=== PATIENT | female | born 1980 | race African-American/Black ===

== ENCOUNTER 2016-10-12 20:06 | Emergency (ER) | payer SELFPAY ==
[2016-10-13] MEDS ORDERED: OXYCODONE-ACETAMINOPHEN 5-325 MG TABLET PO ONE (00:13)
[2016-10-13] MEDS ORDERED: PROMETHAZINE HCL 25 MG TABLET PO ONE (00:13)
[2016-10-13] MEDS ORDERED: DOXYCYCLINE HYCLATE 100 MG TABLET PO ONE (00:13)
--- NOTE | 2016-10-13 00:14 | ER Document Report ---
ED Skin Rash/Insect Bite/Abscs - General Chief Complaint: Abscess Stated Complaint: ABSCESS ON RIGHT HIP Time seen by provider: 00:10 Notes: Patient is a 35-year-old female that comes emergency department for chief complaint of an abscess this developing on her lower right abdomen at the foot, she started noticing this about 2 days ago. She states she has also developed sinus congestion, postnasal drip, mild sore throat, and chills. He denies cough , shortness of breath. Patient denies any daily medications. She states she has had abscesses including over her abdomen in the past. Last menstrual period within the past couple of weeks. TRAVEL OUTSIDE OF THE [place] IN LAST 30 DAYS: No - Related Data Allergies/Adverse Reactions: Penicillins Allergy (Severe, Verified 10/12/16 21:01) Past Medical History - General Information source: Patient - Social History Smoking Status: Never Smoker Drug Abuse: None Lives with: Family Family History: Reviewed & Not Pertinent Renal/ Medical History: Denies: Hx Peritoneal Dialysis Skin Medical History: Reports Hx Cellulitis, Reports Hx MRSA Infectious Medical History: Reports: Hx MRSA Past Surgical History: Reports: Hx Section, Hx Gynecologic Surgery - 3 abortions - Immunizations Immunizations up to date: Yes Hx Diphtheria, Pertussis, Tetanus Vaccination: Yes Hx Pneumococcal Vaccination: 03/18/10 Review of Systems - Review of Systems Constitutional: No symptoms reported EENT: See HPI Cardiovascular: No symptoms reported Respiratory: No symptoms reported Gastrointestinal: No symptoms reported Genitourinary: No symptoms reported Female Genitourinary: No symptoms reported Musculoskeletal: No symptoms reported Skin: No symptoms reported Hematologic/Lymphatic: No symptoms reported Neurological/Psychological: No symptoms reported Physical Exam - Vital signs Vitals: Temp Pulse Resp BP Pulse Ox 99.0 F 80 17 128/73 H 99 10/12/16 21:02 10/12/16 21:02 10/12/16 21:02 10/12/16 21:02 10/12/16 21:02 Interpretation: Normal - General General appearance: Appears well, Alert In distress: None - HEENT Head: Normocephalic, Atraumatic Eyes: Normal Pupils: PERRL - Respiratory Respiratory status: No respiratory distress Chest status: Nontender Breath sounds: Normal Chest palpation: Normal - Cardiovascular Rhythm: Regular Heart sounds: Normal auscultation Murmur: No - Abdominal Inspection: Other - In the fold underneath the right lower abdomen there is an indurated, erythematous, tender area with a fluctuant head. Mild amount of surrounding cellulitis. Distension: No distension Bowel sounds: Normal Tenderness: Nontender Organomegaly: No organomegaly - Back Back: Normal, Nontender - Extremities General upper extremity: Normal inspection, Nontender, Normal color, Normal ROM , Normal temperature General lower extremity: Normal inspection, Nontender, Normal color, Normal ROM , Normal temperature, Normal weight bearing. No: Hima's sign - Neurological Neuro grossly intact: Yes Cognition: Normal Orientation: AAOx4 Sandeep Coma Scale Eye Opening: Spontaneous Sandeep Coma Scale Verbal: Oriented [place] Coma Scale Motor: Obeys Commands [place] Coma Scale Total: 15 Speech: Normal Motor strength normal: LUE, RUE, LLE, RLE Sensory: Normal - Psychological Associated symptoms: Normal affect, Normal mood - Skin Skin Temperature: Warm Skin Moisture: Dry Skin Color: Normal Course - Re-evaluation Re-evalutation: Minimal cellulitis around the abscess, sinus congestion symptoms. Given doxycycline. Abscess drained, packed, discussed treatment/care of the abscess, discussed return precautions, patient states understanding and agreement. - Vital Signs Vital signs: Temp Pulse Resp BP Pulse Ox 98.2 F 74 18 117/71 96 10/13/16 01:57 10/13/16 01:57 10/13/16 01:57 10/13/16 01:57 10/13/16 01:57 Procedures - Incision and Drainage right lower abdominal wall Type: Single Anesthetic type: 1% Lidocaine mL's of anesthetic: 5 Blade size: 11 I&D procedure: Iodoform packing placed, Sterile dressing applied, Other - Surgical cleanser Incision Method: Incision made by scalpel Notes: Area cleansed with surgical cleanser, anesthesia provided with lidocaine 1%, incision performed, about 3 mL of purulent material and a small amount of blood expressed, explored, irrigated, packed, dressed. Discharge - Discharge Clinical Impression: Abscess Condition: Stable Disposition: HOME, SELF-CARE Additional Instructions: Take the packing out in 2 days. Clean gently with soap and water, dress with clean absorbent dressing. After removal of packing clean thoroughly. Take doxycycline antibiotic as directed. Follow-up with primary care. Return to the emergency department for any concerning or worsening symptoms - spreading redness, fever, etc. Prescriptions: Doxycycline Hyclate 100 mg PO BID #14 capsule Oxycodone HCl/Acetaminophen [Percocet 5-325 mg Tablet] 1 - 2 tab PO Q4H PRN #15 tablet PRN Reason:
[2016-10-13] MEDS ORDERED: LIDOCAINE 1% INJ-PF (10 MG/ML) 30 ML SDV ONE (01:01)
[2016-10-13 01:59] VITALS: BP 117/71
== END 2016-10-13 02:05 | disposition home or self-care (01) ==
LOC: ER 20:06
PROC: 0H97XZZ Drainage of Abdomen Skin, External Approach (ICD-10-PCS; principal; 2016-10-12)
DX: L02.211 Cutaneous abscess of abdominal wall (principal); L02.415 Cutaneous abscess of right lower limb; R09.81 Nasal congestion; R09.82 Postnasal drip; J02.9 Acute pharyngitis, unspecified
CPT/HCPCS: 99283; 10060; J3490

== ENCOUNTER 2016-10-19 09:16 | Emergency (ER) | payer SELFPAY ==
--- NOTE | 2016-10-19 11:41 | ER Document Report ---
HPI - HPI Patient complains to provider of: recheck I and D of the right groin Onset: Other - 10/12/2016 Onset/Duration: Persistent Pain Level: 4 Context: 35-year-old female complaining of persistent abscess to her right groin. She feels a large lump medial to wear a follicular abscess was incised on 2016. She is still taking antibiotics. No fever or chills. Associated Symptoms: None Exacerbated by: Movement Relieved by: Denies Similar symptoms previously: Yes Recently seen / treated by doctor: Yes - ROS ROS below otherwise negative: Yes Systems Reviewed and Negative: Yes All other systems reviewed and negative - CARDIOVASCULAR Cardiovascular: DENIES: Chest pain - REPRODUCTIVE Reproductive: DENIES: : - DERM Skin Color: Normal Past Medical History - General Information source: Patient - Social History Smoking Status: Current Every Day Smoker Chew tobacco use (# tins/day): No Frequency of alcohol use: Social Drug Abuse: Marijuana Lives with: Family Family History: Reviewed & Not Pertinent Patient has suicidal ideation: No Patient has homicidal ideation: No - Medical History Medical History: Negative Renal/ Medical History: Denies: Hx Peritoneal Dialysis Skin Medical History: Reports Hx Cellulitis, Reports Hx MRSA Infectious Medical History: Reports: Hx MRSA Past Surgical History: Reports: Hx Section, Hx Gynecologic Surgery - 3 abortions - Immunizations Immunizations up to date: Yes Hx Diphtheria, Pertussis, Tetanus Vaccination: Yes Hx Pneumococcal Vaccination: 03/18/10 Vertical Provider Document - INFECTION CONTROL TRAVEL OUTSIDE OF THE [place] IN LAST 30 DAYS: No - HEENT HEENT: Normocephalic - RESPIRATORY O2 Sat by Pulse Oximetry: 97 - GI/ABDOMEN Gastrointestinal: Abdomen Soft, Abdomen Non-Tender - MUSCULOSKELETAL/EXTREMETIES Musculoskeletal/Extremeties: MAEW, FROM - NEURO Level of Consciousness: Awake, Alert, Appropriate - DERM Integumentary: Warm, Dry, Abscess - flat, crusted, minimal inflammation, mediatl to the inquinal incision area these are suspected lymph node infalmmation, no fluctuance. Course - Re-evaluation Re-evalutation: 10/19/16 11:[address] Sagastume that the area that the patient was concerned about that is medial to the abscess incision area R for lymph nodes. I explained this to the patient and gave her instructions on when to return to the emergency department if needed. - Vital Signs Vital signs: Temp Pulse Resp BP Pulse Ox 97.6 F 66 16 120/79 97 10/19/16 09:21 10/19/16 09:21 10/19/16 09:40 10/19/16 09:21 10/19/16 09:21 Discharge - Discharge Clinical Impression: healing follicular abscess, adenopathy Condition: Good Disposition: HOME, SELF-CARE Instructions: Abscess ([facility]), Lymphadenopathy ([facility]), Use of Hwkx-Bpd-Mmmuwbu Ibuprofen ([facility]) Additional Instructions: Warm compress Finish the doxycycline Return to the emergency room for increased swelling pain redness and warmth. Or any concerns Please complete the patient satisfaction survey if you get one, and return it.. If you do not receive a survey, then you can go to the [facility] website, [email or web address] and place your comments about your very good care. Thank you very much. It was a pleasure being your medical provider today.
[2016-10-19 11:45] VITALS: BP 120/80
== END 2016-10-19 11:45 | disposition home or self-care (01) ==
LOC: ER 09:16
DX: L02.214 Cutaneous abscess of groin (principal); R59.9 Enlarged lymph nodes, unspecified
CPT/HCPCS: 76857; 99283

== ENCOUNTER 2016-11-17 06:32 | Emergency (ER) | payer SELFPAY ==
--- NOTE | 2016-11-17 07:22 | ER Document Report ---
ED GI/ - General Mode of Arrival: Ambulatory Information source: Patient TRAVEL OUTSIDE OF THE [place] IN LAST 30 DAYS: No - HPI Patient complains to provider of: Abdominal pain - RUQ, Flank pain - right, Other - Urinary frequency Onset: Other - 3 days ago Location: RUQ, Right flank Vaginal bleeding (Compared to normal period): None Associated symptoms: Other - See notes above - General Chief Complaint: Urinary Frequency Stated Complaint: PAINFUL URINATION Time Seen by Provider: 11/17/16 07:14 Notes: 35-year-old female with history of UTIs presents to the ED complaining of urinary frequency, right upper quadrant abdominal pain, and right flank pain which started 3 days ago. Patient reports she has not had abdominal pain with prior UTIs and claims that it is likely due to her straining while urinating. Patient denies exacerbation of abdominal pain with eating. Patient also notes that she felt nauseous yesterday and states that she is not nauseous at this time. Patient denies fever, burning, hematuria. Patient denies cholecystectomy. (ANAMARIA CLAIRE) - Related Data Allergies/Adverse Reactions: Penicillins Allergy (Severe, Verified 10/19/16 09:19) Past Medical History - General Information source: Patient - Social History Smoking Status: Current Every Day Smoker Chew tobacco use (# tins/day): No Frequency of alcohol use: Occasional Drug Abuse: Marijuana Family History: Reviewed & Not Pertinent Patient has suicidal ideation: No Patient has homicidal ideation: No Renal/ Medical History: Reports: Other - UTIs. Denies: Hx Peritoneal Dialysis Skin Medical History: Reports Hx Cellulitis, Reports Hx MRSA Infectious Medical History: Reports: Hx MRSA Past Surgical History: Reports: Hx Section, Hx Gynecologic Surgery - 3 abortions - Immunizations Immunizations up to date: Yes Hx Diphtheria, Pertussis, Tetanus Vaccination: Yes Hx Pneumococcal Vaccination: 03/18/10 Review of Systems - Review of Systems Constitutional: No symptoms reported. denies: Fever EENT: No symptoms reported Cardiovascular: No symptoms reported Respiratory: No symptoms reported Gastrointestinal: See HPI, Abdominal pain - Right upper quadrant, Nausea Genitourinary: See HPI, Frequency, Flank pain - Right. denies: Burning, Hematuria Female Genitourinary: No symptoms reported Musculoskeletal: No symptoms reported Skin: No symptoms reported Hematologic/Lymphatic: No symptoms reported Neurological/Psychological: No symptoms reported -: Yes All other systems reviewed and negative Physical Exam - Vital signs Vitals: Temp Pulse Resp BP Pulse Ox 98.0 F 84 16 121/76 97 11/17/16 06:39 11/17/16 06:39 11/17/16 06:39 11/17/16 06:39 11/17/16 06:39 - Notes Notes: GENERAL: Alert, interacts well. No acute distress. HEAD: Normocephalic, atraumatic. EYES: Pupils equal, round, and reactive to light. Extraocular movements intact. ENT: Oral mucosa moist, tongue midline. NECK: Full range of motion. Supple. Trachea midline. BACK: Right CVA tenderness to percussion. LUNGS: Clear to auscultation bilaterally, no wheezes, rales, or rhonchi. No respiratory distress. HEART: Regular rate and rhythm. No murmurs, gallops, or rubs. ABDOMEN: Soft. Non-distended. Bowel sounds present in all 4 quadrants. Mild right upper quadrant and left lateral tenderness to palpation. Negative Chi' s sign. EXTREMITIES: Moves all 4 extremities spontaneously. No edema, radial and dorsalis pedis pulses 2/4 bilaterally. No cyanosis. NEUROLOGICAL: Alert and oriented x3. Normal speech. PSYCH: Normal affect, normal mood. SKIN: Warm, dry, normal turgor. No rashes or lesions noted. (ANAMARIA CLAIRE) Discharge - Discharge Clinical Impression: Urinary tract infection Qualifiers: Urinary tract infection type: acute cystitis Hematuria presence: without hematuria Qualified Code(s): N30.00 - Acute cystitis without hematuria Condition: Stable Disposition: HOME, SELF-CARE Instructions: Urinary Tract Infection ([facility]) Prescriptions: Doxycycline Hyclate 100 mg PO BID #14 capsule Phenazopyridine HCl [Pyridium 200 mg Tablet] 200 mg PO TID #7 tablet Forms: Return to Work Scribe Attestation: 11/17/16 11:30 I personally performed the services described in the documentation, reviewed and edited the documentation which was dictated to the scribe in my presence, and it accurately records my words and actions. (JORGITO SCHULTE) Scribe Documentation - Scribe Written by Scribe:: Susan Selby, 11/17/2016 0806 acting as scribe for :: Tonio
[2016-11-17 08:04] LABS: APPEARANCE,URINE CLOUDY; BILIRUBIN,URINE NEGATIVE (NEGATIVE); GLUCOSE, URINE NEGATIVE (NEGATIVE); KETONES,URINE NEGATIVE (NEGATIVE); LEUKOCYTE ESTERASE,URINE LARGE (NEGATIVE); NITRITE,URINE NEGATIVE (NEGATIVE); PROTEIN,URINE 30 mg/dL (NEGATIVE); UROBILINOGEN,URINE NEGATIVE mg/dL (<2.0)
[2016-11-17] MEDS ORDERED: DOXYCYCLINE HYCLATE 100 MG TABLET PO ONE (08:12)
[2016-11-17 10:01] VITALS: BP 121/80
== END 2016-11-17 09:45 | disposition home or self-care (01) ==
LOC: ER 06:32
DX: N30.00 Acute cystitis without hematuria (principal); R35.0 Frequency of micturition; R30.9 Painful micturition, unspecified; R10.11 Right upper quadrant pain; R10.9 Unspecified abdominal pain; F17.200 Nicotine dependence, unspecified, uncomplicated
CPT/HCPCS: 81001; 81025; 99283

== ENCOUNTER 2016-12-25 08:35 | Emergency (ER) | payer SELFPAY ==
--- NOTE | 2016-12-25 09:31 | ER Document Report ---
ED Skin Rash/Insect Bite/Abscs - General Chief Complaint: Abscess Stated Complaint: POSSIBEL ABSCESS Time Seen by Provider: 12/25/16 09:31 Mode of Arrival: Ambulatory Information source: Patient TRAVEL OUTSIDE OF THE [place] IN LAST 30 DAYS: No - Related Data Allergies/Adverse Reactions: Penicillins Allergy (Severe, Verified 12/25/16 08:42) Past Medical History - Social History Family History: Reviewed & Not Pertinent Renal/ Medical History: Denies: Hx Peritoneal Dialysis Skin Medical History: Reports Hx Cellulitis, Reports Hx MRSA Infectious Medical History: Reports: Hx MRSA Past Surgical History: Reports: Hx Section, Hx Gynecologic Surgery - 3 abortions - Immunizations Immunizations up to date: Yes Hx Diphtheria, Pertussis, Tetanus Vaccination: Yes Hx Pneumococcal Vaccination: 03/18/10 Physical Exam - Vital signs Vitals: Temp Pulse Resp BP Pulse Ox 98.0 F 76 16 125/83 98 12/25/16 08:39 12/25/16 08:39 12/25/16 08:39 12/25/16 08:39 12/25/16 08:39 Course - Vital Signs Vital signs: Temp Pulse Resp BP Pulse Ox 98.0 F 76 16 125/83 98 12/25/16 08:39 12/25/16 08:39 12/25/16 08:39 12/25/16 08:39 12/25/16 08:39
[2016-12-25] MEDS ORDERED: SULFAMETHOXAZOLE/TRIMETHOPRIM 800-160 MG TABLET PO ONE (09:36)
[2016-12-25] MEDS ORDERED: OXYCODONE-ACETAMINOPHEN 5-325 MG TABLET PO ONE (09:36)
[2016-12-25] MEDS ORDERED: LIDOCAINE 4%/TETRACAINE 0.5%/EPI 0.18% 5 ML TOPICAL SOLN TOP ONE (09:36)
[2016-12-25] MEDS ORDERED: ONDANSETRON 4 MG TAB.RAPDIS PO ONE (09:36)
[2016-12-25] MEDS ORDERED: MUPIROCIN 2% OINTMENT 22 GM TP ONE (09:36)
--- NOTE | 2016-12-25 09:37 | ER Document Report ---
HPI - HPI Patient complains to provider of: abdominal abscess Onset: Other - several days Onset/Duration: Worse Pain Level: 4 Context: 36 yo non diabetic female with hx abscess some MRSA developed a small pimple last week, popped it and now it is much bigger and more painful. She is requesting a culture. NO fever. Associated Symptoms: None Exacerbated by: Movement Relieved by: Denies Similar symptoms previously: Yes Recently seen / treated by doctor: No - ROS ROS below otherwise negative: Yes Systems Reviewed and Negative: Yes All other systems reviewed and negative - REPRODUCTIVE Reproductive: DENIES: : - DERM Skin Color: Normal Past Medical History - General Information source: Patient - Social History Smoking Status: Current Every Day Smoker Frequency of alcohol use: None Drug Abuse: None Lives with: Family Family History: Reviewed & Not Pertinent - Medical History Medical History: Negative Renal/ Medical History: Denies: Hx Peritoneal Dialysis Skin Medical History: Reports Hx Cellulitis, Reports Hx MRSA Infectious Medical History: Reports: Hx MRSA Past Surgical History: Reports: Hx Section, Hx Gynecologic Surgery - 3 abortions - Immunizations Immunizations up to date: Yes Hx Diphtheria, Pertussis, Tetanus Vaccination: Yes Hx Pneumococcal Vaccination: 03/18/10 Vertical Provider Document - CONSTITUTIONAL Agree With Documented VS: Yes General Appearance: No Apparent Distress - INFECTION CONTROL TRAVEL OUTSIDE OF THE [place] IN LAST 30 DAYS: No - HEENT HEENT: Normocephalic - NECK Neck: Supple - RESPIRATORY O2 Sat by Pulse Oximetry: 98 - GI/ABDOMEN Gastrointestinal: Abdomen Soft Notes: 1.5 cm abscess upper midline abdominal wall with flucuant 5 mm center, no cellulitis - MUSCULOSKELETAL/EXTREMETIES Musculoskeletal/Extremeties: CHEIKH DOUGLAS - NEURO Level of Consciousness: Awake, Alert, Appropriate - DERM Integumentary: Abscess - see above Course - Vital Signs Vital signs: Temp Pulse Resp BP Pulse Ox 98.0 F 76 16 125/83 98 12/25/16 08:39 12/25/16 08:39 12/25/16 08:39 12/25/16 08:39 12/25/16 08:39 Procedures - Incision and Drainage Abdomen Time completed: 10:40 Type: Simple Anesthetic type: 1% Lidocaine, Other - LET mL's of anesthetic: 3 Blade size: 11 I&D procedure: Betadine prep applied Incision Method: Incision made by scalpel Amount/type of drainage: large, cut Discharge - Discharge Clinical Impression: abscess I and D, abdomen Condition: Good Disposition: HOME, SELF-CARE Instructions: Abscess ([facility]), Trimethoprim-Sulfa ([facility]), Post Incision and Drainage Additional Instructions: Warm compress Keep the dressing on for 2 days After you take the dressing off in 2 days, wash vigorously with soap and washclothe to er if worse bactroban *(muperiacin) ointment small amount 3 times per day to smalle pimples before they get large Please complete the patient satisfaction survey if you get one, and return it.. If you do not receive a survey, then you can go to the [facility] website, [email or web address] and place your comments about your very good care. Thank you very much. It was a pleasure being your medical provider today. Prescriptions: Ibuprofen [Motrin 800 mg Tablet] 800 mg PO Q8HP PRN #30 tablet PRN Reason: Sulfamethoxazole/Trimethoprim [Sulfamethoxazole-Tmp Ds Tablet] 1 each PO BID # 14 tablet
[2016-12-25 10:47] VITALS: BP 113/71
== END 2016-12-25 10:47 | disposition home or self-care (01) ==
LOC: ER 08:35
PROC: 0H97XZZ Drainage of Abdomen Skin, External Approach (ICD-10-PCS; principal; 2016-12-25)
DX: L02.211 Cutaneous abscess of abdominal wall (principal); F17.200 Nicotine dependence, unspecified, uncomplicated
CPT/HCPCS: 99283; 87070; 87205; 87075; 10060; S0119; J3490 ×2

== ENCOUNTER 2017-07-30 18:56 | Emergency (ER) | payer MEDICAID ==
[2017-07-30 19:34] VITALS: BP 103/66
--- NOTE | 2017-07-30 21:53 | ER Document Report ---
HPI - HPI Patient complains to provider of: sinus pain, congestion Pain Level: 4 Context: Patient is a 36-year-old female who comes emergency department for chief complaint of 1 week of congestion, she states she is worsened because now her left sinus has significant pain and she is having some chills. She denies difficulty breathing although she has occasional congested cough. She states she thinks she might have influenza. She is 6 weeks , she denies bleeding, abdominal pain, vomiting, flank pain. She is following with [facility]. She denies smoking, denies any daily prescribed medications. - REPRODUCTIVE Reproductive: DENIES: : Past Medical History - General Information source: Patient - Social History Smoking Status: Never Smoker Frequency of alcohol use: None Drug Abuse: None Lives with: Family Family History: Reviewed & Not Pertinent Renal/ Medical History: Denies: Hx Peritoneal Dialysis Skin Medical History: Reports Hx Cellulitis, Reports Hx MRSA Infectious Medical History: Reports: Hx MRSA Past Surgical History: Reports: Hx Section, Hx Gynecologic Surgery - 3 abortions - Immunizations Immunizations up to date: Yes Hx Diphtheria, Pertussis, Tetanus Vaccination: Yes Hx Pneumococcal Vaccination: 03/18/10 Vertical Provider Document - CONSTITUTIONAL General Appearance: WD/WN, No Apparent Distress - INFECTION CONTROL TRAVEL OUTSIDE OF THE [place] IN LAST 30 DAYS: No - HEENT HEENT: Atraumatic, Normocephalic. negative: Normal ENT Exam - Obvious sinus congestion, some nasal congestion, tenderness over maxillary sinuses, mild postnasal drip, unremarkable pharynx otherwise, unremarkable ENT exam otherwise - NECK Neck: Normal Inspection - RESPIRATORY Respiratory: Breath Sounds Normal, No Respiratory Distress. negative: Wheezing - No tachypnea or labored breathing O2 Sat by Pulse Oximetry: 98 - CARDIOVASCULAR Cardiovascular: Regular Rate, Regular Rhythm - GI/ABDOMEN Gastrointestinal: Abdomen Soft, Abdomen Non-Tender - BACK Back: Normal Inspection - MUSCULOSKELETAL/EXTREMETIES Musculoskeletal/Extremeties: MAEW, FROM, Non-Tender - NEURO Level of Consciousness: Awake, Alert, Appropriate - DERM Integumentary: Warm, Dry, No Rash Course - Re-evaluation Re-evalutation: Patient with sinus tenderness on exam, obvious congestion, sick symptoms for 1 week. Clear lungs, minimal occasional cough, no hypoxia, no respiratory distress. Unfortunately we do not have any flu testing kits in the hospital and I am unable to test her for the influenza. I explained this to patient. I also discussed possible chest x-ray although this was declined. Because of likely sinus infection patient will be treated with azithromycin (allergic to penicillin). She will also be given nasal spray. I discussed Tamiflu, however after discussion this was declined. Patient to follow-up with [facility], discussed return precautions in detail, patient states satisfaction. - Vital Signs Vital signs: Temp Pulse Resp BP Pulse Ox 98.1 F 77 18 103/66 98 07/30/17 19:32 07/30/17 19:32 07/30/17 19:32 07/30/17 19:32 07/30/17 19:32 Discharge - Discharge Clinical Impression: Sinusitis Qualifiers: Sinusitis location: unspecified location Chronicity: acute Recurrence: non- recurrent Qualified Code(s): J01.90 - Acute sinusitis, unspecified Upper respiratory infection Qualifiers: URI type: unspecified URI Qualified Code(s): J06.9 - Acute upper respiratory infection, unspecified Condition: Stable Disposition: HOME, SELF-CARE Additional Instructions: Your examination is consistent with a developing sinus infection after an initial upper respiratory virus. Take azithromycin as prescribed. Take Flonase as prescribed. You can take Benadryl for postnasal drainage, Tylenol for pain/chills. Follow-up with primary care closely. Return if you worsen in anyway including spiking fever, difficulty breathing, abdominal pain/vomiting, or any other concerning symptoms. Prescriptions: Azithromycin [Zithromax 250 mg Tablet] 250 mg PO ASDIR #4 tablet Fluticasone Propionate [Flonase Nasal [place] 50 Mcg/[place] 16 gm] 1 spray NASL Q12 #1 inhaler Forms: Return to Work
[2017-07-30] MEDS ORDERED: AZITHROMYCIN 250 MG TABLET PO ONE (22:05)
== END 2017-07-30 22:22 | disposition home or self-care (01) ==
LOC: ER 18:56
DX: J01.90 Acute sinusitis, unspecified (principal); J06.9 Acute upper respiratory infection, unspecified; R51 Headache; R09.81 Nasal congestion; R05 Cough; Z3A.01 Less than 8 weeks gestation of pregnancy
CPT/HCPCS: 99283; Q0144

== ENCOUNTER 2017-08-24 16:59 | Outpatient (CLI) | payer MEDICAID ==
[2017-08-24] MEDS ORDERED: RINGERS SOLUTION,LACTATED 1,000 ML IV PRN (18:00)
[2017-08-24 18:20] LABS: APPEARANCE,URINE CLEAR; BILIRUBIN,URINE NEGATIVE (NEGATIVE); COLOR,URINE YELLOW; GLUCOSE, URINE NEGATIVE (NEGATIVE); KETONES,URINE 20 mg/dL (NEGATIVE); LEUKOCYTE ESTERASE,URINE MODERATE (NEGATIVE); NITRITE,URINE NEGATIVE (NEGATIVE); PROTEIN,URINE NEGATIVE (NEGATIVE); URINE SPECIFIC GRAVITY 1.013; UROBILINOGEN,URINE NEGATIVE mg/dL (<2.0)
[2017-08-24 18:33] LABS: URINE AMPHETAMINES SCREEN NEGATIVE; URINE BARBITURATES SCREEN NEGATIVE; URINE BENZODIAZEPINES SCREEN NEGATIVE; URINE COCAINE SCREEN NEGATIVE; URINE MARIJUANA (THC) SCREEN UNCONFIRMED POSITIVE; URINE METHADONE SCREEN NEGATIVE; URINE PHENCYCLIDINE SCREEN NEGATIVE
--- NOTE | 2017-08-24 19:03 | RADIOLOGY REPORT (SQ) ---
EXAM DESCRIPTION: U/S OB LIMITED COMPLETED DATE/TIME: 08/24/2017 6:43 pm REASON FOR STUDY: Cervical length to r/o PTL COMPARISON: None. TECHNIQUE: Limited transvaginal grayscale ultrasound for evaluation of specific requested obstetrica l parameters. LIMITATIONS: None. FINDINGS: CERVICAL LENGTH: 5.3 cm. Closed. YO: Not measured. Cm. FHR: 141 beats per minute. OTHER: There is a live intrauterine gestation of 25 weeks 6 days with an estimated date of delivery o f 12/01/2017. IMPRESSION: LIMITED OBSTETRICAL ULTRASOUND WITH MEASURED PARAMETERS DELINEATED ABOVE. Trimester of : Second trimester - 13 weeks 1 day to 27 weeks 6 days. TECHNICAL DOCUMENTATION: JOB ID: [id number] [employer]- All Rights Reserved Reading location - IP/workstation name: [email or web address]
[2017-08-24 19:27] LABS: CHLAM PCR NOT DETECTED (NOT DETECT); GON PCR NOT DETECTED (NOT DETECT)
[2017-08-24 20:26] LABS: BACTERIA (WET MOUNT) 3+ BACTERIA SEEN; EPITHELIALS (WET MOUNT) 4+ EPITHELIALS SEEN; T.VAGINALIS (WET MOUNT) TRICHOMONAS SEEN; WBCS (WET MOUNT) 1+ WBCS SEEN; YEAST (WET MOUNT) NO YEAST SEEN
[2017-08-24] MEDS ORDERED: METRONIDAZOLE 500 MG TABLET PO ONE ×2 (20:47→21:24)
[2017-08-24] MEDS ORDERED: METRONIDAZOLE 500 MG TABLET ONE (20:47)
== END 2017-08-24 19:40 | disposition home or self-care (01) ==
LOC: LC 16:59
PROVIDERS: ATTEND Obstetrics & Gynecology
PROC: 4A1HXCZ Monitoring of Products of Conception, Cardiac Rate, External Approach (ICD-10-PCS; principal; 2017-08-24)
DX: O47.02 False labor before 37 completed weeks of gestation, second trimester (principal); O09.522 Supervision of elderly multigravida, second trimester; Z3A.25 25 weeks gestation of pregnancy
CPT/HCPCS: 59899; 87210; 81001; 80307; 87491; 87591; 76815; J3490

== ENCOUNTER 2017-10-25 12:53 | Outpatient (CLI) | payer MEDICAID | END 2017-10-25 13:30 | disposition home or self-care (01) | LOC: LC 12:53 | PROVIDERS: ATTEND Student in an Organized Health Care Education/Training Program | PROC: 4A1HXCZ Monitoring of Products of Conception, Cardiac Rate, External Approach (ICD-10-PCS; principal; 2017-10-25) | DX: O09.523 Supervision of elderly multigravida, third trimester (principal); Z3A.34 34 weeks gestation of pregnancy | CPT/HCPCS: 59025 ==

== ENCOUNTER 2017-11-26 05:20 | Inpatient (IN) | payer MEDICAID ==
[2017-11-23 12:57] LABS: ABSOLUTE EOSINOPHILS # (AUTO) 0.1 10^3/uL (0.0-0.6); ABSOLUTE LYMPHOCYTES (AUTO) 2.3 10^3/uL (0.5-4.7); ABSOLUTE MONOCYTES (AUTO) 0.7 10^3/uL (0.1-1.4); ABSOLUTE NEUT (AUTO) 5.4 10^3/uL (1.7-8.2); BASOPHILS % (AUTO) 0.3 % (0-2); EOSINOPHILS % (AUTO) 1.3 % (0-6); HEMOGLOBIN 11.7 g/dL (12.0-15.5); LYMPHOCYTES % (AUTO) 27.4 % (13-45); MEAN CORPUSCULAR HEMOGLOBIN 28.9 pg (27.0-33.4); MEAN CORPUSCULAR HGB CONC 35.3 g/dL (32.0-36.0); MEAN CORPUSCULAR VOLUME 82 fl (80-97); MONOCYTES % (AUTO) 8.3 % (3-13); PLATELET COUNT 273 10^3/uL (150-450); RED BLOOD COUNT 4.03 10^6/uL (3.72-5.28); RED CELL DISTRIBUTION WIDTH 14.6 % (11.5-14.0); SEGMENTED NEUTROPHILS % (AUTO) 62.7 % (42-78); TOTAL CELLS COUNTED % (AUTO) 100 %; WHITE BLOOD COUNT 8.6 10^3/uL (4.0-10.5)
[2017-11-24 12:29] LABS: APPEARANCE,URINE CLEAR; BILIRUBIN,URINE NEGATIVE (NEGATIVE); COLOR,URINE YELLOW; GLUCOSE, URINE NEGATIVE (NEGATIVE); KETONES,URINE NEGATIVE (NEGATIVE); LEUKOCYTE ESTERASE,URINE NEGATIVE (NEGATIVE); NITRITE,URINE NEGATIVE (NEGATIVE); PROTEIN,URINE NEGATIVE (NEGATIVE); URINE SPECIFIC GRAVITY 1.011; UROBILINOGEN,URINE NEGATIVE mg/dL (<2.0)
[2017-11-24 12:51] LABS: URINE AMPHETAMINES SCREEN NEGATIVE; URINE BARBITURATES SCREEN NEGATIVE; URINE BENZODIAZEPINES SCREEN NEGATIVE; URINE COCAINE SCREEN NEGATIVE; URINE MARIJUANA (THC) SCREEN NEGATIVE; URINE METHADONE SCREEN NEGATIVE; URINE PHENCYCLIDINE SCREEN NEGATIVE
[~2017-11-26 05:20] MED LIST: CEFAZOLIN 1 GM/D5W RTU 1 GM/50 ML RTUPB IV PRN; LACTATED RINGERS 1000 ML IV PRN; LIDOCAINE 0.5% INJ-PF (5 MG/ML) 50 ML SDV SUBCUT PRN; RINGERS SOLUTION,LACTATED 1,000 ML IV PRN
[2017-11-26] MEDS ORDERED: PROPOFOL INJ 200 MG/20 ML VIAL IV ONE (07:26)
[2017-11-26] MEDS ORDERED: OXYTOCIN 10 UNIT/ML VIAL ONE (07:26)
[2017-11-26] MEDS ORDERED: EPHEDRINE SULFATE INJ 50 MG/1 ML AMPULE ONE (07:27)
[2017-11-26] MEDS ORDERED: FENTANYL CITRATE INJ/PF 100 MCG/2 ML AMPUL ONE ×3 (07:27→09:13)
[2017-11-26] MEDS ORDERED: MIDAZOLAM 2 MG/2 ML INJ ONE (07:27)
[2017-11-26] MEDS ORDERED: TETRACAINE HCL/PF 20MG/2ML AMPULE (SPINAL) ONE (07:27)
[2017-11-26] MEDS ORDERED: DIPHENHYDRAMINE HCL 50 MG/ML VIAL IV PRN (08:21)
[2017-11-26] MEDS ORDERED: MEPERIDINE HCL/PF INJ 25 MG/1 ML DISP.SYRIN IV PRN (08:21)
[2017-11-26] MEDS ORDERED: FENTANYL CITRATE INJ/PF 100 MCG/2 ML AMPUL IV PRN ×3 (08:21)
[2017-11-26] MEDS ORDERED: PROMETHAZINE HCL INJ 25 MG/1 ML VIAL IV PRN (08:21)
[2017-11-26] MEDS ORDERED: KETAMINE HCL INJ 500 MG/10 ML VIAL ONE (08:27)
--- NOTE | 2017-11-26 09:08 | PDOC DELIVERY SUMMARY ---
Delivery Summary - Maternal Hx : V Hx Total # of Abortions (Sponateous & Elective): 3 KISHORE: 12/01/17 Ruptured Membranes: AROM Time of Rupture: 08:03 Fluids: Clear - Delivery Labor: Not In Labor Presentation: Vertex Heart Rate Monitoring: Done Pre-Operatively Support Person Present: Yes Location: LD : Scheduled, Repeat Placenta: Within Normal Limits Nuchal Cord: Yes Delivery of Placenta Date: 11/26/17 Delivery of Placenta Time: 08:05 - Medications Type of Anesthesia:: Spinal - Assess and Care Baby 1 Female Delivery of Date: 11/26/17 Delivery of Infant Time: 08:04 at 1 minute: 8 at 5 minutes: 9 Preprinted Number On Band: [id number] Skin to Skin: No To Nursery At: 08:13 Mode of Transport: Bassinet Delivery Weight: 3,235 Delivery Length: 20.5 in - Delivery Personnel [employer] Leader: VINOD HAWKINS RN: NOLBERTO ISAACS RN: DANNI MOURA MD: ANGEL ANTOINE
[2017-11-26] MEDS ORDERED: PROMETHAZINE HCL INJ 25 MG/1 ML VIAL ONE (09:13)
--- NOTE | 2017-11-26 09:14 | OPERATIVE REPORT E ---
Operative Report NAME: YAZ DYSON : 1980 AGE: 36Y DATE OF SURGERY:11/26/2017 ROOM: 227 PREOPERATIVE DIAGNOSES: 1. Intrauterine at term with prior section 2. Desire for sterilization. POSTOPERATIVE DIAGNOSIS: 1. Intrauterine at term with prior section. 2. Desire for sterilization. 3. Cystotomy. PROCEDURES: 1. Repeat low-transverse section with delivery of viable female, 8 and 9, 7 pounds 2 ounces. 2. Bilateral tubal occlusion using Filshie clips. 3. Repair of cystotomy. SURGEON: Tutu ANTOINE M.D. ESTIMATED BLOOD LOSS: Less than 600 mL. TISSUE REMOVED OR ALTERED: Placenta. ANESTHESIA: Spine. DESCRIPTION OF PROCEDURE: The patient was placed in the supine position and the rolled on right side, prepped and draped in sterile fashion. The Pfannenstiel incision was made through the existing Pfannenstiel scar incision and is taken through the subcutaneous tissue with sharp dissection. Fascia sharply divided. The rectus muscle bluntly and sharply divided. Parietal peritoneum was entered with sharp dissection. Multiple adhesions were encountered. The uterus was nicked in midline and extended bilaterally. The was then delivered through the uterine dome incision using the kiwi*. One pull n0 pop offs. There was nuchal cord x1. The cord was clamped and infant was passed from the table. The placenta was manually extracted. The uterus was closed in 2 layers; the first, a running stitch of 0 Vicryl; the second a Lembert stitch imbricating the first layer. A small amount of bleeding noted in the mid portion, controlled with [id number] sutures of 0 Vicryl. Filshie clips were applied in the proximal portion of both tubes and identified to the fimbria prior to and after banding. Cystotomy was recognized and closed piecing 3 layers using 3-0 plain and 2-0 chromic. It appeared to be watertight. The fascia was closed with 0 Vicryl and the skin was closed with skin clips. The patient tolerated well and taken to recovery in good condition. DICTATING PHYSICIAN: Tutu ANTOINE M.D. [id number] PHY#: [id number] ID: [id number] JOB#: [id number] ACCT: [id number] cc:Tutu ANTOINE M.D. > JELENA
[2017-11-26] MEDS ORDERED: ACETAMINOPHEN 1,000 MG/100 ML RTUPB IV ONE (10:09)
[2017-11-26] MEDS ORDERED: OXYTOCIN/NORMAL SALINE 20 UNIT/1,000 ML RTUINJ INJ PRN (11:35)
[2017-11-26] MEDS ORDERED: DEXTROSE 5%-LACTATED RINGERS 1,000 ML IV PRN (11:37)
[2017-11-26] MEDS ORDERED: MORPHINE SULFATE 10 MG/ML INJ ONE (11:38)
[2017-11-26] MEDS ORDERED: OXYCODONE-ACETAMINOPHEN 5-325 MG TABLET PO PRN (12:00)
[2017-11-26] MEDS ORDERED: SIMETHICONE 80 MG TAB.CHEW PO PRN (12:00)
[2017-11-26] MEDS ORDERED: MEASLES,MUMPS&RUBELLA VACC/PF 0.5 ML VIAL SUBCUT PRN (12:00)
[2017-11-26] MEDS ORDERED: PROMETHAZINE HCL INJ 25 MG/1 ML VIAL IM PRN (12:00)
[2017-11-26] MEDS ORDERED: DIPH/PERTUSS(ACELL)/TETANUS VAC/PF 0.5 ML SYR (>=10YO) IM PRN (12:00)
[2017-11-26] MEDS ORDERED: ACETAMINOPHEN 325 MG TABLET PO PRN (12:00)
[2017-11-26] MEDS ORDERED: MORPHINE SULFATE 10 MG/ML INJ IM PRN ×2 (12:00)
[2017-11-26] MEDS: IBUPROFEN 800 MG TABLET PO SCH ×2 (12:47→17:27)
[2017-11-26] MEDS: OXYCODONE-ACETAMINOPHEN 5-325 MG TABLET PO PRN ×3 (14:45→22:43)
[2017-11-26] MEDS ORDERED: PHENYLEPHRINE HCL INJ/PF 10 MG/1 ML SDV ONE (16:03)
[2017-11-26] MEDS ORDERED: ONDANSETRON HCL INJ/PF 4 MG/2 ML SDV ONE (16:03)
[2017-11-26] MEDS ORDERED: KETOROLAC TROMETHAMINE 60 MG/2 ML SDV ONE (16:03)
[2017-11-26] MEDS: DOCUSATE SODIUM 100 MG CAPSULE PO SCH (17:27)
[2017-11-26] MEDS: NITROFURANTOIN MONOHYD/M-CRYST 100 MG CAPSULE PO SCH (21:50)
[2017-11-27] MEDS: IBUPROFEN 800 MG TABLET PO SCH ×4 (00:58→17:16)
[2017-11-27] MEDS: OXYCODONE-ACETAMINOPHEN 5-325 MG TABLET PO PRN ×5 (05:32→22:00)
[2017-11-27 07:31] LABS: HEMATOCRIT 23.3 % (36.0-47.0); HEMOGLOBIN 8.1 g/dL (12.0-15.5); MEAN CORPUSCULAR HEMOGLOBIN 28.3 pg (27.0-33.4); MEAN CORPUSCULAR HGB CONC 34.6 g/dL (32.0-36.0); MEAN CORPUSCULAR VOLUME 82 fl (80-97); PLATELET COUNT 220 10^3/uL (150-450); RED BLOOD COUNT 2.85 10^6/uL (3.72-5.28); RED CELL DISTRIBUTION WIDTH 14.5 % (11.5-14.0); WHITE BLOOD COUNT 16.5 10^3/uL (4.0-10.5)
[2017-11-27] MEDS: DOCUSATE SODIUM 100 MG CAPSULE PO SCH ×2 (09:14→17:16)
[2017-11-27] MEDS: PRENATAL VITAMIN W DHA CAPSULE PO SCH (09:14)
[2017-11-27] MEDS: NITROFURANTOIN MONOHYD/M-CRYST 100 MG CAPSULE PO SCH (23:00)
[2017-11-28] MEDS: OXYCODONE-ACETAMINOPHEN 5-325 MG TABLET PO PRN ×3 (02:12→11:40)
[2017-11-28] MEDS: IBUPROFEN 800 MG TABLET PO SCH ×3 (06:58→11:38)
[2017-11-28] MEDS: DOCUSATE SODIUM 100 MG CAPSULE PO SCH (07:52)
[2017-11-28] MEDS: PRENATAL VITAMIN W DHA CAPSULE PO SCH (07:52)
--- NOTE | 2017-11-28 13:53 | PDOC DISCHARGE SUMMARY ---
Final Diagnosis Discharge Date: 11/28/17 - Final Diagnosis (1) Acute blood loss anemia Is this a current diagnosis for this admission?: Yes (2) Bladder injury, closed Is this a current diagnosis for this admission?: Yes (3) Previous delivery affecting Is this a current diagnosis for this admission?: Yes (4) Status post section Is this a current diagnosis for this admission?: Yes (5) Sterilization Is this a current diagnosis for this admission?: Yes Discharge Data - Discharge Medication Prescriptions: Oxycodone HCl/Acetaminophen [Percocet 5-325 mg Tablet] 1 tab PO Q4HP PRN #30 tablet PRN Reason: For Pain Scale 3-5 Ibuprofen [Motrin 800 mg Tablet] 800 mg PO Q8HP PRN #30 tablet PRN Reason: Docusate Sodium [Colace 100 mg Capsule] 100 mg PO BID #60 capsule Ferrous Sulfate [Feosol 325 mg Tablet] 325 mg PO BID #60 tablet Nitrofurantoin Monohyd/M-Cryst [Macrobid 100 mg Capsule] 100 mg PO BID 14 Days # 28 capsule Home Medications: Vit,Calc76/Iron/Folic [Pnv 29-1 Tablet] 1 tab PO DAILY 08/24/17 Docusate Sodium [Colace 100 mg Capsule] 100 mg PO BID #60 capsule 11/28/17 Ferrous Sulfate [Feosol 325 mg Tablet] 325 mg PO BID #60 tablet 11/28/17 Ibuprofen [Motrin 800 mg Tablet] 800 mg PO Q8HP PRN #30 tablet 11/28/17 Nitrofurantoin Monohyd/M-Cryst [Macrobid 100 mg Capsule] 100 mg PO BID 14 Days # 28 capsule 11/28/17 Oxycodone HCl/Acetaminophen [Percocet 5-325 mg Tablet] 1 tab PO Q4HP PRN #30 tablet 11/28/17 Reason(s) for Admission: Ceasarean Section-Repeat, Tubal Ligation Procedures: NST, Ultrasound Intrapartum Procedure(s): : Low Cervical, Transverse, Tubal Ligation, Other - bladder injury repair - Diagnosis Test Laboratory: Temp Pulse Resp BP Pulse Ox 98.5 F 84 18 113/56 L 94 11/28/17 08:36 11/28/17 08:36 11/28/17 08:36 11/28/17 08:36 11/28/17 08:36 11/23/17 11/24/17 11/27/17 12:10 08:31 07:21 RBC 4.03 2.85 L Hgb 11.7 L 8.1 L Hct 33.0 L 23.3 L Urine Opiates Screen NEGATIVE - Discharge information/Instructions Discharge Activity: Activity As Tolerated, Balance Activity w/Rest, No Driving, No Lifting Over 10 Pounds, No Lifting/Push/Pulling, Pelvic Rest, Slowly Increase Activity, No tub bath, Walk Frequently Discharge Diet: As Tolerated, Regular Disposition: HOME, SELF-CARE Follow up with: [facility] in: 1, Weeks - with Dr. Boucher
[2017-11-28 14:03] VITALS: BP 113/56
== END 2017-11-28 15:39 | disposition home or self-care (01) | DRG 765 ==
LOC: 2S 05:20
PROVIDERS: ADMIT Obstetrics & Gynecology Gynecology; ATTEND Obstetrics & Gynecology Gynecology
PROC: 0UL70CZ Occlusion of Bilateral Fallopian Tubes with Extraluminal Device, Open Approach (ICD-10-PCS; 2017-11-26)
PROC: 0TQB0ZZ Repair Bladder, Open Approach (ICD-10-PCS; 2017-11-26)
PROC: 4A1HXCZ Monitoring of Products of Conception, Cardiac Rate, External Approach (ICD-10-PCS; 2017-11-26)
PROC: 10D00Z1 Extraction of Products of Conception, Low, Open Approach (ICD-10-PCS; principal; 2017-11-26 07:30)
PROC: 3E0234Z Introduction of Serum, Toxoid and Vaccine into Muscle, Percutaneous Approach (ICD-10-PCS; 2017-11-28)
DX: O34.219 Maternal care for unspecified type scar from previous cesarean delivery (principal); O71.5 Other obstetric injury to pelvic organs; D62 Acute posthemorrhagic anemia; O34.211 Maternal care for low transverse scar from previous cesarean delivery; O69.81X0 Labor and delivery complicated by cord around neck, without compression, not applicable or unspecified; O99.02 Anemia complicating childbirth; O99.89 Other specified diseases and conditions complicating pregnancy, childbirth and the puerperium; N73.6 Female pelvic peritoneal adhesions (postinfective); O99.334 Smoking (tobacco) complicating childbirth; F17.210 Nicotine dependence, cigarettes, uncomplicated; Z30.2 Encounter for sterilization; Z37.0 Single live birth; Z23 Encounter for immunization; Z88.0 Allergy status to penicillin; Z3A.39 39 weeks gestation of pregnancy
CPT/HCPCS: 1961; 36415; 59025; 80307; 81001; 85025; 85027; 86850; 86900; 86901; 90715; 94799; J0131; J0690; J1885; J2250; J2270; J2370; J2405; J2550; J2590; J2704; J3010; J3490; J7120; J8499

== ENCOUNTER 2018-01-18 09:12 | Emergency (ER) | payer MEDICAID ==
[2018-01-18 09:18] VITALS: BP 120/85
[2018-01-18] MEDS ORDERED: OXYCODONE-ACETAMINOPHEN 5-325 MG TABLET PO ONE (09:39)
--- NOTE | 2018-01-18 09:46 | ER Document Report ---
ED Skin Rash/Insect Bite/Abscs - General Chief Complaint: Abscess Stated Complaint: POSSIBLE ABSCESS Time Seen by Provider: 01/18/18 09:34 Mode of Arrival: Ambulatory Information source: Patient Notes: Patient presents emergency department with complaints of abscess to the right groin area. Patient reports it started a few days ago. Reports history of MRSA 1. Patient recently had a 6 weeks ago. She is not breast- feeding. Denies fever vomiting diarrhea. TRAVEL OUTSIDE OF THE [place] IN LAST 30 DAYS: No - HPI Patient complains to provider of: Tender/swollen area Onset: Other - Few days ago Onset/Duration: Persistent Quality of pain: Achy, Pressure Severity: Moderate Pain Level: 4 Skin Character: Abscess - Related Data Allergies/Adverse Reactions: Penicillins Allergy (Severe, Verified 01/18/18 09:14) Past Medical History - General Information source: Patient Last Menstrual Period: post 6 weeks - Social History Smoking Status: Current Every Day Smoker Chew tobacco use (# tins/day): No Frequency of alcohol use: Occasional Drug Abuse: Marijuana Lives with: Family Family History: Reviewed & Not Pertinent Patient has suicidal ideation: No Patient has homicidal ideation: No Renal/ Medical History: Denies: Hx Kidney Stones, Hx Peritoneal Dialysis GI Medical History: Denies: Hx Gastroesophageal Reflux Disease, Hx Hiatal Hernia , Hx Ulcer Skin Medical History: Reports Hx Cellulitis, Reports Hx MRSA Psychiatric Medical History: Reports: Hx Depression Infectious Medical History: Reports: Hx MRSA Past Surgical History: Reports: Hx Section, Hx Genitourinary Surgery - bladder repair, Hx Gynecologic Surgery - 3 abortions - Immunizations Immunizations up to date: Yes Hx Diphtheria, Pertussis, Tetanus Vaccination: Yes Hx Pneumococcal Vaccination: 03/18/10 Review of Systems - Review of Systems Notes: Review HPI for review of systems., All other systems negative Physical Exam - Vital signs Vitals: Temp Pulse Resp BP Pulse Ox 98.6 F 81 16 120/85 99 01/18/18 09:17 01/18/18 09:17 01/18/18 09:17 01/18/18 09:17 01/18/18 09:17 - Notes Notes: PHYSICAL EXAMINATION: GENERAL: Well-appearing and in no acute distress HEAD: Atraumatic, normocephalic. EYES: Pupils equal round extraocular movements intact, sclera anicteric, conjunctiva are normal. ENT: nares patent, clear voice Moist mucous membranes. NECK: Normal range of motion, supple LUNGS: RR even/unlabored HEART: Regular rate ABDOMEN: Soft, no tenderness. No guarding, no rebound EXTREMITIES: Normal range of motion, no pitting edema. No cyanosis. NEUROLOGICAL: Cranial nerves grossly intact. Normal sensory/motor exams. PSYCH: Normal mood, normal affect. SKIN: Warm, Dry, normal turgor, abscess, erythema, no warmth, to right side groin, ~ 5 cm oval irregular, fluctuant center, no pustule - Skin Skin Temperature: Warm Skin Moisture: Dry Skin Color: Normal Skin irregularity: Abscess Location of irregularity: Other - right groin Character of irregularity: Erythematous Irregularity with: Swelling - fluctuant, Tenderness. negative: Warmth Course - Re-evaluation Re-evalutation: 01/18/18 10:33 Abscess drained large amount of discharge obtained. Area pack. Patient instructed on signs and symptoms of worsening infection and instructed to return here for the symptoms. She verbalized understanding. Discharged home with prescription of Septra which patient has taken before and Percocet. - Vital Signs Vital signs: Temp Pulse Resp BP Pulse Ox 98.6 F 81 16 120/85 99 01/18/18 09:17 01/18/18 09:17 01/18/18 09:17 01/18/18 09:17 01/18/18 09:17 Procedures - Incision and Drainage Groin Type: Simple Anesthetic type: 1% Lidocaine mL's of anesthetic: 2 Blade size: 11 I&D procedure: Other - plain packing placed Incision Method: Incision made by scalpel Amount/type of drainage: large amount thick cream colored drainage obtained Adult Front & Back picture: 1 - 5 cm irregular oval abscess drained after making a t shaped incision, area probed, cleaned well with shur clens, packing placed, pt tolerated procedure well Discharge - Discharge Clinical Impression: Abscess Condition: Stable Disposition: HOME, SELF-CARE Instructions: Abscess ([facility]), Oral Narcotic Medication ([facility]), Post Incision and Drainage, Trimethoprim-Sulfa ([facility]) Additional Instructions: *You have been treated for an abscess with incision and drainage *Take medication as prescribed *Monitor the site for signs of increasing infection such as increasing pain, redness, swelling, warmth *Wash the site twice daily as discussed *Follow up with a primary care provider within 5 days for recheck *For any signs of infection return to ED or for worsening condition, concerns, changes, needs Prescriptions: Oxycodone HCl/Acetaminophen [Percocet 5-325 mg Tablet] 1 tab PO ASDIR PRN #15 tablet PRN Reason: Sulfamethoxazole/Trimethoprim [Bactrim Ds Tablet] 1 each PO BID #20 tablet Forms: Smoking Cessation Education Referrals: ANSELMO VILLAFUERTE MD [ACTIVE STAFF] - Follow up in 3-5 days
== END 2018-01-18 10:15 | disposition home or self-care (01) ==
LOC: ER 09:12
DX: L02.214 Cutaneous abscess of groin (principal); F17.200 Nicotine dependence, unspecified, uncomplicated; Z86.14 Personal history of Methicillin resistant Staphylococcus aureus infection; Z88.0 Allergy status to penicillin
CPT/HCPCS: 87070; 87075; 87077; 87205; 99283

== ENCOUNTER 2018-06-12 06:36 | Emergency (ER) | payer MEDICAID ==
[2018-06-12] MEDS ORDERED: HYDROCODONE/ACETAMINOPHEN 5-325 MG TABLET PO ONE (07:33)
[2018-06-12] MEDS ORDERED: LIDOCAINE 1%/EPINEPHRINE INJ 20 ML VIAL INJ ONE (07:33)
--- NOTE | 2018-06-12 07:34 | ER Document Report ---
ED General - General Chief Complaint: Abscess Stated Complaint: SKIN PROBLEM Time Seen by Provider: 06/12/18 07:20 Mode of Arrival: Ambulatory TRAVEL OUTSIDE OF THE [place] IN LAST 30 DAYS: No - HPI Patient complains to provider of: abdominal pain Onset: Other - 37-year-old otherwise healthy female who presents for evaluation of an abscess near her bellybutton which is developed over 4 days. She has had an abscess like this in the past which required drainage. Denies any systemic signs of infections including fevers chills or other illnesses. - Related Data Allergies/Adverse Reactions: Penicillins Allergy (Severe, Verified 01/18/18 09:14) Past Medical History - General Information source: Patient - Social History Smoking Status: Current Every Day Smoker Smoking Education Provided: Yes Family History: Reviewed & Not Pertinent Patient has suicidal ideation: No Patient has homicidal ideation: No Renal/ Medical History: Denies: Hx Kidney Stones, Hx Peritoneal Dialysis GI Medical History: Denies: Hx Gastroesophageal Reflux Disease, Hx Hiatal H ernia, Hx Ulcer Skin Medical History: Reports Hx Cellulitis, Reports Hx MRSA Psychiatric Medical History: Reports: Hx Depression Infectious Medical History: Reports: Hx MRSA Past Surgical History: Reports: Hx Section, Hx Genitourinary Surgery - bladder repair, Hx Gynecologic Surgery - 3 abortions - Immunizations Immunizations up to date: Yes Hx Diphtheria, Pertussis, Tetanus Vaccination: Yes Hx Pneumococcal Vaccination: 03/18/10 Review of Systems - Review of Systems -: Yes All other systems reviewed and negative Physical Exam - Vital signs Vitals: Temp Pulse Resp BP Pulse Ox 98.2 F 72 16 115/67 98 06/12/18 06:57 06/12/18 06:57 06/12/18 06:57 06/12/18 06:57 06/12/18 06:57 Interpretation: Normal - General General appearance: Appears well, Alert - HEENT Head: Normocephalic, Atraumatic Eyes: Normal Pupils: PERRL - Respiratory Respiratory status: No respiratory distress Chest status: Nontender Breath sounds: Normal Chest palpation: Normal - Cardiovascular Rhythm: Regular Heart sounds: Normal auscultation Murmur: No - Abdominal Inspection: Normal Distension: No distension Bowel sounds: Normal Tenderness: Nontender, Other - Small circular well-circumscribed 2 x 2 mass at the 3 o'clock position just lateral to the umbilicus Organomegaly: No organomegaly - Back Back: Normal, Nontender - Extremities General upper extremity: Normal inspection, Nontender, Normal color, Normal ROM, Normal temperature General lower extremity: Normal inspection, Nontender, Normal color, Normal ROM, Normal temperature, Normal weight bearing. No: Hima's sign - Neurological Neuro grossly intact: Yes Cognition: Normal Orientation: AAOx4 Sandeep Coma Scale Eye Opening: Spontaneous Calion Coma Scale Verbal: Oriented Sandeep Coma Scale Motor: Obeys Commands Calion Coma Scale Total: 15 Speech: Normal Motor strength normal: LUE, RUE, LLE, RLE Sensory: Normal - Psychological Associated symptoms: Normal affect, Normal mood - Skin Skin Temperature: Warm Skin Moisture: Dry Skin Color: Normal Course - Re-evaluation Re-evalutation: 06/20/18 09:00 Is a 37-year-old female who presents for complaint of an abscess near her umbilicus which is developed over the last 4 days. She has had similar episodes in the past which required drainage. Denies any systemic signs of infection at this time. Bedside ultrasound does demonstrate a well-circumscribed area with hyper or hypoechoic fluid is heterogeneous and nature. Subsequently performed incision and drainage at the bedside utilizing 11 blade and subcutaneous injection of lidocaine. Following copious purulent material was expressed from the wound itself. It was packed in place and the patient instructed to follow-up. She was discharged on a course of Bactrim as this has been shown reduction in the number needed to treat for a return visit to the emergency department. - Vital Signs Vital signs: Temp Pulse Resp BP Pulse Ox 97.9 F 62 16 126/74 H 99 06/12/18 08:56 06/12/18 08:56 06/12/18 06:57 06/12/18 08:56 06/12/18 08:56 Procedures - Incision and Drainage Left Abdomen Type: Simple Anesthetic type: 1% Lidocaine w/epi mL's of anesthetic: 8 Blade size: 11 I&D procedure: Betadine prep applied Incision Method: Incision made by scalpel Discharge - Discharge Clinical Impression: Abscess Condition: Good Disposition: HOME, SELF-CARE Instructions: Abscess ([facility]), Trimethoprim-Sulfa ([facility]) Additional Instructions: You were seen today in the emergency department for your abscess. You had evaluation including a physical exam of the drainage. You have been given an antibiotic. Take the antibiotic for the next 10 days. Return in case you have any worsening fevers or chills. Worsening drainage or the infection seems to spread. Prescriptions: Sulfamethoxazole/Trimethoprim [Bactrim Ds Tablet] 1 each PO BID #20 tablet Forms: Smoking Cessation Education, Return to Work
[2018-06-12 09:06] VITALS: BP 126/74
== END 2018-06-12 09:06 | disposition home or self-care (01) ==
LOC: ER 06:36
PROC: 0H97XZZ Drainage of Abdomen Skin, External Approach (ICD-10-PCS; principal; 2018-06-12)
DX: L02.211 Cutaneous abscess of abdominal wall (principal)
CPT/HCPCS: 99283; 10060; J3490

== ENCOUNTER 2018-07-25 22:23 | Emergency (ER) | payer MEDICAID ==
[2018-07-26] MEDS ORDERED: IBUPROFEN 800 MG TABLET PO ONE (04:04)
[2018-07-26 04:52] LABS: A TYPE INFLUENZA AG NEGATIVE (NEGATIVE); B INFLUENZA AG NEGATIVE (NEGATIVE)
--- NOTE | 2018-07-26 05:12 | ER Document Report ---
ED General - General Chief Complaint: Flu Symptoms Stated Complaint: FLU LIKE SYMPTOMS Time Seen by Provider: 07/26/18 04:03 Mode of Arrival: Ambulatory Information source: Patient TRAVEL OUTSIDE OF THE [place] IN LAST 30 DAYS: No - Related Data Allergies/Adverse Reactions: Penicillins Allergy (Severe, Verified 01/18/18 09:14) Past Medical History - Social History Smoking Status: Current Every Day Smoker Chew tobacco use (# tins/day): No Frequency of alcohol use: Occasional Drug Abuse: None, Marijuana Family History: Reviewed & Not Pertinent Patient has suicidal ideation: No Patient has homicidal ideation: No Renal/ Medical History: Denies: Hx Kidney Stones, Hx Peritoneal Dialysis GI Medical History: Denies: Hx Gastroesophageal Reflux Disease, Hx Hiatal Hernia, Hx Ulcer Skin Medical History: Reports Hx Cellulitis, Reports Hx MRSA Psychiatric Medical History: Reports: Hx Depression Infectious Medical History: Reports: Hx MRSA Past Surgical History: Reports: Hx Section, Hx Genitourinary Surgery - bladder repair, Hx Gynecologic Surgery - 3 abortions - Immunizations Immunizations up to date: Yes Hx Diphtheria, Pertussis, Tetanus Vaccination: Yes Hx Pneumococcal Vaccination: 03/18/10 Physical Exam - Vital signs Vitals: Temp Pulse Resp BP Pulse Ox 100.7 F H 97 14 134/81 H 96 07/25/18 22:36 07/25/18 22:36 07/25/18 22:36 07/25/18 22:36 07/25/18 22:36 Course - Vital Signs Vital signs: Temp Pulse Resp BP Pulse Ox 100.7 F H 97 14 134/81 H 96 07/25/18 22:36 07/25/18 22:36 07/25/18 22:36 07/25/18 22:36 07/25/18 22:36
[2018-07-26] MEDS ORDERED: NORMAL SALINE 1000 ML 1,000 ML IV ONE (05:39)
--- NOTE | 2018-07-26 05:43 | ER Document Report ---
ED Medical Screen (RME) - General Chief Complaint: Flu Symptoms Stated Complaint: FLU LIKE SYMPTOMS Time Seen by Provider: 07/26/18 04:03 Notes: Patient is a 37-year-old -Japanese female who comes in with acute onset body aches, chills, tightness in her chest and fevers. She had an influenza swab in triage which was negative. However, patient is still tachycardic and having tightness in her chest despite no longer being febrile. I have treated and performed a rapid initial assessment of this patient. A comprehensive ED assessment and evaluation of the patient, analysis of test results and completion of medical decision making process will be conducted by additional ED providers. PHYSICAL EXAMINATION: GENERAL: Ill-appearing LUNGS: Breath sounds clear to auscultation bilaterally and equal. No wheezes rales or rhonchi. HEART: Tachycardic ABDOMEN: Soft, nondistended abdomen. No guarding, no rebound. Normal bowel sounds present. No CVA tenderness bilaterally. + mild epigastric tenderness (cannot elicit thorough abd exam w/o table, however). Extremities: No cyanosis, clubbing, or edema b/l. NEUROLOGICAL: Normal speech, normal gait. PSYCH: Normal mood, normal affect. TRAVEL OUTSIDE OF THE [place] IN LAST 30 DAYS: No - Related Data Allergies/Adverse Reactions: Penicillins Allergy (Severe, Verified 01/18/18 09:14) Past Medical History - Social History Chew tobacco use (# tins/day): No Frequency of alcohol use: Occasional Drug Abuse: None, Marijuana Renal/ Medical History: Denies: Hx Kidney Stones, Hx Peritoneal Dialysis GI Medical History: Denies: Hx Gastroesophageal Reflux Disease, Hx Hiatal Hernia, Hx Ulcer Skin Medical History: Reports Hx Cellulitis, Reports Hx MRSA Psychiatric Medical History: Reports: Hx Depression Infectious Medical History: Reports: Hx MRSA Past Surgical History: Reports: Hx Section, Hx Genitourinary Surgery - bladder repair, Hx Gynecologic Surgery - 3 abortions - Immunizations Immunizations up to date: Yes Hx Diphtheria, Pertussis, Tetanus Vaccination: Yes History of Influenza Vaccine for 03/2017 - 08/2017 Season: Yes Physical Exam - Vital signs Vitals: Temp Pulse Resp BP Pulse Ox 100.7 F H 97 14 134/81 H 96 07/25/18 22:36 07/25/18 22:36 07/25/18 22:36 07/25/18 22:36 07/25/18 22:36 Course - Vital Signs Vital signs: Temp Pulse Resp BP Pulse Ox 100.7 F H 97 14 134/81 H 96 07/25/18 22:36 07/25/18 22:36 07/25/18 22:36 07/25/18 22:36 07/25/18 22:36
[2018-07-26 06:29] LABS: ABSOLUTE LYMPHOCYTES (AUTO) 0.4 10^3/uL (0.5-4.7); ABSOLUTE MONOCYTES (AUTO) 0.5 10^3/uL (0.1-1.4); ABSOLUTE NEUT (AUTO) 6.5 10^3/uL (1.7-8.2); BASOPHILS % (AUTO) 0.3 % (0-2); EOSINOPHILS % (AUTO) 0.2 % (0-6); HEMATOCRIT 38.6 % (36.0-47.0); HEMOGLOBIN 13.5 g/dL (12.0-15.5); LYMPHOCYTES % (AUTO) 5.1 % (13-45); MEAN CORPUSCULAR HEMOGLOBIN 28.9 pg (27.0-33.4); MEAN CORPUSCULAR HGB CONC 34.9 g/dL (32.0-36.0); MEAN CORPUSCULAR VOLUME 83 fl (80-97); MONOCYTES % (AUTO) 6.1 % (3-13); PLATELET COUNT 264 10^3/uL (150-450); RED BLOOD COUNT 4.66 10^6/uL (3.72-5.28); RED CELL DISTRIBUTION WIDTH 15.9 % (11.5-14.0); SEGMENTED NEUTROPHILS % (AUTO) 88.3 % (42-78); TOTAL CELLS COUNTED % (AUTO) 100 %; WHITE BLOOD COUNT 7.4 10^3/uL (4.0-10.5)
[2018-07-26 06:52] LABS: ALANINE AMINOTRANSFERASE 27 U/L (9-52); ALBUMIN 4.5 g/dL (3.5-5.0); ALKALINE PHOSPHATASE 81 U/L (38-126); ANION GAP 9 (5-19); ASPARTATE AMINO TRANSFERASE 61 U/L (14-36); BILIRUBIN,DIRECT 0.3 mg/dL (0.0-0.4); BILIRUBIN,TOTAL 0.9 mg/dL (0.2-1.3); BLOOD UREA NITROGEN 11 mg/dL (7-20); CALCIUM 9.1 mg/dL (8.4-10.2); CARBON DIOXIDE 23 mmol/L (22-30); CHLORIDE 105 mmol/L (98-107); GLUCOSE 103 mg/dL (75-110); POTASSIUM 3.9 mmol/L (3.6-5.0); SODIUM 136.8 mmol/L (137-145); TOTAL PROTEIN 7.9 g/dL (6.3-8.2)
--- NOTE | 2018-07-26 07:08 | RADIOLOGY REPORT (SQ) ---
EXAM DESCRIPTION: XR CHEST 2 VIEWS COMPLETED DATE/TME: 07/26/2018 05:38 CLINICAL HISTORY: cough, fever COMPARISON: None. FINDINGS: Frontal and lateral views of the chest. The cardiomediastinal silhouette has normal size and contour. No consolidation, pneumothorax, or pleural effusion. No displaced rib fractures identified. Upper abdominal soft tissues are unremarkable. IMPRESSION: 1. No acute pulmonary process identified.
[2018-07-26 07:09] LABS: APPEARANCE,URINE CLOUDY; BILIRUBIN,URINE NEGATIVE (NEGATIVE); COLOR,URINE YELLOW; GLUCOSE, URINE NEGATIVE (NEGATIVE); KETONES,URINE NEGATIVE (NEGATIVE); LEUKOCYTE ESTERASE,URINE NEGATIVE (NEGATIVE); NITRITE,URINE NEGATIVE (NEGATIVE); PROTEIN,URINE NEGATIVE (NEGATIVE); URINE SPECIFIC GRAVITY 1.011; UROBILINOGEN,URINE NEGATIVE mg/dL (<2.0)
[2018-07-26] MEDS ORDERED: ACETAMINOPHEN 325 MG TABLET PO ONE (07:41)
--- NOTE | 2018-07-26 07:46 | ER Document Report ---
ED Flu Like - General Chief Complaint: Flu Symptoms Stated Complaint: FLU LIKE SYMPTOMS Time Seen by Provider: 07/26/18 04:03 TRAVEL OUTSIDE OF THE [place] IN LAST 30 DAYS: No - HPI Notes: Patient is a 37-year-old female that presents to the emergency department for chief complaint of fever and cough. Patient reports fever cough and congestion that began yesterday. She believes she did get an influenza vaccine this year. She reports diffuse body aches sweats and chills. She reports a nonproductive cough. She is a smoker and has had to decrease her tobacco use because of her symptoms. She denies any abdominal pain nausea vomiting or diarrhea. Patient does endorse a tightness in her chest with coughing and denies history of asthma or COPD. Past Medical History: Negative Past Surgical History: Negative Social History: Daily tobacco, occasional alcohol, occasional marijuana Family History: Reviewed and noncontributory for presenting illness Allergies: Reviewed, see documented allergy list. REVIEW OF SYSTEMS: CONSTITUTIONAL : fever chills diaphoresis No recent illness EENT: No vision changes No congestion No sore throat CARDIOVASCULAR: chest pain No palpitations RESPIRATORY: No shortness of breath cough No difficulty breathing GASTROINTESTINAL: No abdominal pain No nausea No vomiting No diarrhea GENITOURINARY: No dysuria No hematuria No difficulty urinating MUSCULOSKELETAL: No back pain No leg pain No arm pain SKIN: No rashes No lesions LYMPHATIC: No swollen, enlarged glands. NEUROLOGICAL: No lightheadedness No headache No weakness No paresthesias PSYCHIATRIC: No anxiety No depression PHYSICAL EXAMINATION: Vital signs reviewed, nursing noted reviewed. GENERAL: Well-appearing, well-nourished and in no acute distress. HEAD: Atraumatic, normocephalic. EYES: Eyes appear normal, extraocular movements intact, sclera anicteric, conjunctiva are normal. ENT: nares patent, oropharynx clear without exudates. Moist mucous membranes. NECK: Normal range of motion, supple without lymphadenopathy LUNGS: Breath sounds mildly wheezy and diminished diffusely HEART: Regular rate and rhythm without murmurs ABDOMEN: Soft, nontender, normoactive bowel sounds. No rebound, guarding, or rigidity. No masses appreciated. EXTREMITIES: Nontender, good range of motion, no pitting or edema. NEUROLOGICAL: No focal neurological deficits. Moves all extremities spontaneously Motor and sensory grossly intact on exam. PSYCH: Normal mood, normal affect. SKIN: Warm, Dry, normal turgor, no rashes or lesions noted on exposed skin - Related Data Allergies/Adverse Reactions: Penicillins Allergy (Severe, Verified 01/18/18 09:14) Past Medical History - Social History Smoking Status: Current Every Day Smoker Chew tobacco use (# tins/day): No Frequency of alcohol use: Occasional Drug Abuse: None, Marijuana Family History: Reviewed & Not Pertinent Patient has suicidal ideation: No Patient has homicidal ideation: No Renal/ Medical History: Denies: Hx Kidney Stones, Hx Peritoneal Dialysis GI Medical History: Denies: Hx Gastroesophageal Reflux Disease, Hx Hiatal Hernia, Hx Ulcer Skin Medical History: Reports Hx Cellulitis, Reports Hx MRSA Psychiatric Medical History: Reports: Hx Depression Infectious Medical History: Reports: Hx MRSA Past Surgical History: Reports: Hx Section, Hx Genitourinary Surgery - bladder repair, Hx Gynecologic Surgery - 3 abortions - Immunizations Immunizations up to date: Yes Hx Diphtheria, Pertussis, Tetanus Vaccination: Yes Hx Pneumococcal Vaccination: 03/18/10 Physical Exam - Vital signs Vitals: Temp Pulse Resp BP Pulse Ox 100.7 F H 97 14 134/81 H 96 07/25/18 22:36 07/25/18 22:36 07/25/18 22:36 07/25/18 22:36 07/25/18 22:36 Course - Re-evaluation Re-evalutation: 07/26/18 07:44 Vitals reviewed. Nursing notes reviewed. Patient was initially febrile and tachycardic. After receiving Motrin and IV hydration she is now afebrile and not tachycardic. Her influenza testing is negative today however her symptoms are consistent with influenza. Her chest x-ray shows no pneumonia. The remainder of her workup is unremarkable. She has remained hemodynamically stable. She will be given ibuprofen and Tessalon Perles for symptomatic management at home. She was counseled on return precautions. She will follow with PCP. She is stable at discharge. Laboratory 07/26/18 07/26/18 07/26/18 04:25 06:20 06:20 WBC 7.4 RBC 4.66 Hgb 13.5 Hct 38.6 MCV 83 MCH 28.9 MCHC 34.9 RDW 15.9 H Plt Count 264 Seg Neutrophils % 88.3 H Lymphocytes % 5.1 L Monocytes % 6.1 Eosinophils % 0.2 Basophils % 0.3 Absolute Neutrophils 6.5 Absolute Lymphocytes 0.4 L Absolute Monocytes 0.5 Absolute Eosinophils 0.0 Absolute Basophils 0.0 Sodium 136.8 L Potassium 3.9 Chloride 105 Carbon Dioxide 23 Anion Gap 9 BUN 11 Creatinine 0.77 Est GFR ( Amer) > 60 Est GFR (Non-Af Amer) > 60 Glucose 103 Calcium 9.1 Total Bilirubin 0.9 Direct Bilirubin 0.3 Neonat Total Bilirubin Not Reportable Neonat Direct Bilirubin Not Reportable Neonat Indirect Bili Not Reportable AST 61 H ALT 27 Alkaline Phosphatase 81 Total Protein 7.9 Albumin 4.5 Urine Color Urine Appearance Urine pH Ur Specific Kendall Urine Protein Urine Glucose (UA) Urine Ketones Urine Blood Urine Nitrite Urine Bilirubin Urine Urobilinogen Ur Leukocyte Esterase Urine WBC (Auto) Urine RBC (Auto) Urine Bacteria (Auto) Squamous Epi Cells Auto Urine Mucus (Auto) Urine Ascorbic Acid Urine HCG, Qual Influenza A (Rapid) NEGATIVE Influenza B (Rapid) NEGATIVE 07/26/18 06:50 WBC RBC Hgb Hct MCV MCH MCHC RDW Plt Count Seg Neutrophils % Lymphocytes % Monocytes % Eosinophils % Basophils % Absolute Neutrophils Absolute Lymphocytes Absolute Monocytes Absolute Eosinophils Absolute Basophils Sodium Potassium Chloride Carbon Dioxide Anion Gap BUN Creatinine Est GFR ( Amer) Est GFR (Non-Af Amer) Glucose Calcium Total Bilirubin Direct Bilirubin Neonat Total Bilirubin Neonat Direct Bilirubin Neonat Indirect Bili AST ALT Alkaline Phosphatase Total Protein Albumin Urine Color YELLOW Urine Appearance CLOUDY Urine pH 6.0 Ur Specific Kendall 1.011 Urine Protein NEGATIVE Urine Glucose (UA) NEGATIVE Urine Ketones NEGATIVE Urine Blood NEGATIVE Urine Nitrite NEGATIVE Urine Bilirubin NEGATIVE Urine Urobilinogen NEGATIVE Ur Leukocyte Esterase NEGATIVE Urine WBC (Auto) 5 Urine RBC (Auto) 1 Urine Bacteria (Auto) TRACE Squamous Epi Cells Auto 10 Urine Mucus (Auto) FEW Urine Ascorbic Acid NEGATIVE Urine HCG, Qual NEGATIVE Influenza A (Rapid) Influenza B (Rapid) Chest X-Ray 07/26/18 05:38 IMPRESSION: 1. No acute pulmonary process identified. - Vital Signs Vital signs: Temp Pulse Resp BP Pulse Ox 99.2 F 97 14 111/61 93 07/26/18 07:34 07/25/18 22:36 07/25/18 22:36 07/26/18 06:50 07/26/18 06:50 - Laboratory Result Diagrams: 07/26/18 06:20 07/26/18 06:20 Laboratory results interpreted by me: 07/26/18 07/26/18 06:20 06:20 RDW 15.9 H Seg Neutrophils % 88.3 H Lymphocytes % 5.1 L Absolute Lymphocytes 0.4 L Sodium 136.8 L AST 61 H Discharge - Discharge Clinical Impression: Influenza Condition: Stable Disposition: HOME, SELF-CARE Instructions: Influenza ([facility]) [id number] Additional Instructions: Please return to the emergency department if you have any worsening, or concern of your symptoms. Please return to the emergency department if you develop chest pain, difficulty breathing, severe abdominal pain, or ongoing vomiting. Please follow-up with your primary care physician in 2-3 days and any other recommended physicians. If prescribed, take all medications as directed. If you have any questions or concerns do not hesitate to return the emergency department for evaluation. Prescriptions: Benzonatate [Tessalon Perles 100 mg Capsule] 100 mg PO Q8HP PRN #40 capsule PRN Reason: Cough Ibuprofen [Ibu] 600 mg PO Q6 PRN #30 tablet PRN Reason: Pain and fever Referrals: [facility] [Provider Group] - Follow up in 3-5 days
[2018-07-26 08:55] VITALS: BP 126/84
== END 2018-07-26 09:05 | disposition home or self-care (01) ==
LOC: ER 22:23
DX: J11.1 Influenza due to unidentified influenza virus with other respiratory manifestations (principal); R50.9 Fever, unspecified; R05 Cough; M79.10 Myalgia, unspecified site; F17.200 Nicotine dependence, unspecified, uncomplicated; Z86.14 Personal history of Methicillin resistant Staphylococcus aureus infection; Z88.0 Allergy status to penicillin
CPT/HCPCS: 99284; 96360; 36415; 85025; 81025; 80053; 81001; 87804; 71046; J3490 ×2; J7030

== ENCOUNTER 2018-10-22 23:41 | Emergency (ER) | payer SELFPAY ==
[2018-10-23 02:03] LABS: APPEARANCE,URINE TURBID; BILIRUBIN,URINE NEGATIVE (NEGATIVE); CALCIUM OXALATE CRYSTALS,URINE FEW /HPF; COLOR,URINE YELLOW; GLUCOSE, URINE NEGATIVE (NEGATIVE); KETONES,URINE NEGATIVE (NEGATIVE); LEUKOCYTE ESTERASE,URINE MODERATE (NEGATIVE); NITRITE,URINE NEGATIVE (NEGATIVE); PROTEIN,URINE 100 mg/dL (NEGATIVE); URINE SPECIFIC GRAVITY 1.029; UROBILINOGEN,URINE NEGATIVE mg/dL (<2.0)
[2018-10-23 03:27] LABS: CHLAM PCR NOT DETECTED (NOT DETECT); GON PCR NOT DETECTED (NOT DETECT)
[2018-10-23] MEDS ORDERED: CEFTRIAXONE INJ 1000 MG VIAL IM ONE (04:48)
[2018-10-23] MEDS ORDERED: HYDROCODONE/ACETAMINOPHEN 5-325 MG (6 TAB/ER DISP) PO PRN (04:48)
[2018-10-23] MEDS ORDERED: LIDOCAINE 1% INJ-PF (10 MG/ML) 30 ML SDV INJ ONE (04:48)
--- NOTE | 2018-10-23 04:54 | ER Document Report ---
HPI - HPI Time Seen by Provider: 10/23/18 04:42 Pain Level: 4 Context: Patient is a 37-year-old female that comes to the emergency department for chief complaint of painful urination, intermittent lower abdominal pain, urinary frequency. She denies fever/chills, nausea/vomiting. She denies vaginal bleeding or discharge. She denies concerns of STD. She denies . - CONSTITUTIONAL Constitutional: DENIES: Fever, Chills - EENT EENT: DENIES: Sore Throat, Ear Pain, Eye problems - NEURO Neurology: DENIES: Headache, Weakness, Vision blurred, Dizzinesss / Vertigo - CARDIOVASCULAR Cardiovascular: DENIES: Chest pain - RESPIRATORY Respiratory: DENIES: Trouble Breathing, Coughing - GASTROINTESTINAL Gastrointestinal: REPORTS: Abdominal Pain - "pressure". DENIES: Black / Bloody Stools - URINARY Urinary: DENIES: Dysuria, Urgency, Frequency - REPRODUCTIVE Reproductive: DENIES: :, Postmenopausal, Abnormal bleeding / discharge - MUSCULOSKELETAL Musculoskeletal: DENIES: Extremity pain Past Medical History - General Information source: Patient - Social History Smoking Status: Current Every Day Smoker Chew tobacco use (# tins/day): No Frequency of alcohol use: None Drug Abuse: None Lives with: Family Family History: Reviewed & Not Pertinent Patient has suicidal ideation: No Patient has homicidal ideation: No Renal/ Medical History: Denies: Hx Kidney Stones, Hx Peritoneal Dialysis GI Medical History: Denies: Hx Gastroesophageal Reflux Disease, Hx Hiatal Hernia, Hx Ulcer Skin Medical History: Reports Hx Cellulitis, Reports Hx MRSA Psychiatric Medical History: Reports: Hx Depression Infectious Medical History: Reports: Hx MRSA Past Surgical History: Reports: Hx Section, Hx Genitourinary Surgery - bladder repair, Hx Gynecologic Surgery - 3 abortions - Immunizations Immunizations up to date: Yes Hx Diphtheria, Pertussis, Tetanus Vaccination: Yes Hx Pneumococcal Vaccination: 03/18/10 Vertical Provider Document - CONSTITUTIONAL General Appearance: WD/WN, No Apparent Distress - INFECTION CONTROL TRAVEL OUTSIDE OF THE [place] IN LAST 30 DAYS: No - HEENT HEENT: Atraumatic, Normal ENT Exam, Normocephalic - NECK Neck: Normal Inspection - RESPIRATORY Respiratory: Breath Sounds Normal, No Respiratory Distress - CARDIOVASCULAR Cardiovascular: Regular Rate, Regular Rhythm - GI/ABDOMEN Gastrointestinal: Abdomen Soft. negative: Abdomen Non-Tender - Mild suprapubic tenderness, no tenderness of the abdomen noted otherwise, no guarding, no rigidity - BACK Back: Normal Inspection - MUSCULOSKELETAL/EXTREMETIES Musculoskeletal/Extremeties: MISAEL, FROM, Non-Tender - NEURO Level of Consciousness: Awake, Alert, Appropriate Motor/Sensory: No Motor Deficit, No Sensory Deficit - DERM Integumentary: Warm, Dry, No Rash Course - Re-evaluation Re-evalutation: Patient denies vaginal bleeding or discharge, denies STD exposure. I asked patient about this specifically because nursing reported otherwise. Patient states that she feels like she has a urinary tract infection, she has the same symptoms of urinary tract infection, she does not want to be tested or treated for potential STD, and she does not have vaginal bleeding or discharge. Patient does have some suprapubic tenderness, she has urinalysis consistent with urinary tract infection, she will be treated for developing tract infection. She was also starting to complain of nausea on my evaluation, given Rocephin. Vital signs unremarkable. Discussed expectations, follow-up, and return precautions. Patient states understanding and agreement. - Vital Signs Vital signs: Temp Pulse Resp BP Pulse Ox 97.6 F 69 20 115/58 L 97 10/23/18 00:24 10/23/18 00:24 10/23/18 00:24 10/23/18 00:24 10/23/18 00:24 - Laboratory Laboratory results interpreted by me: 10/23/18 00:15 Urine Protein 100 H Urine Blood SMALL H Ur Leukocyte Esterase MODERATE H Discharge - Discharge Clinical Impression: Dysuria Urinary tract infection Qualifiers: Urinary tract infection type: site unspecified Hematuria presence: with hematuria Qualified Code(s): N39.0 - Urinary tract infection, site not specified Condition: Stable Disposition: HOME, SELF-CARE Additional Instructions: Your evaluation is consistent with a urinary tract infection. Your test is negative. Take antibiotics as prescribed to completion. Follow-up with primary care. Return if you worsen including fever, vomiting, worsening pain, or any other concerning symptoms. Prescriptions: Cephalexin Monohydrate [Keflex 500 mg Capsule] 500 mg PO BID 5 Days #10 capsule
[2018-10-23 05:17] VITALS: BP 118/60
== END 2018-10-23 05:16 | disposition home or self-care (01) ==
LOC: ER 23:41
DX: N39.0 Urinary tract infection, site not specified (principal); R30.0 Dysuria; F17.200 Nicotine dependence, unspecified, uncomplicated; Z86.14 Personal history of Methicillin resistant Staphylococcus aureus infection
CPT/HCPCS: 99283; 96372; 81025; 81001; 87491; 87591; J3490; J0696

== ENCOUNTER 2019-12-07 10:21 | Emergency (ER) | payer SELFPAY ==
[2019-12-07] MEDS ORDERED: ACETAMINOPHEN 325 MG TABLET PO ONE (10:51)
[2019-12-07] MEDS ORDERED: CLINDAMYCIN 600 MG/D5W RTU 600 MG/50 ML RTUPB IV ONE (10:52)
--- NOTE | 2019-12-07 10:54 | ER Document Report ---
ED Medical Screen (RME) - General Chief Complaint: Abscess Stated Complaint: ABSCESS Time Seen by Provider: 12/07/19 10:46 Mode of Arrival: Ambulatory Information source: Patient Notes: HPI; 38-year female presents to the emergency room complaining of a possible abscess along her scar that she noticed 6 days ago. was 2 years ago. Patient is having increasing pain, redness, and swelling to the area. No history of MRSA. History of previous abscesses that of abdomen open that she states were sebaceous cyst. Denies fevers. No medications for symptoms. PE: Alert and oriented x3. Mild distress noted. Lungs: Clear to auscultation without rales, rhonchi, wheezes. Heart: Regular rate and rhythm without murmurs, rubs, gallops. Lower abdomen along the surgical scar there is an area of erythema that is warm and tender to palpation. Unable to do full assessment in triage. I have greeted and performed a rapid initial assessment of this patient. A comprehensive ED assessment and evaluation of the patient, analysis of test results and completion of the medical decision making process will be conducted by additional ED providers. I have specifically instructed the patient or family members with the patient to immediately return to any nursing staff should anything change in the patient's condition or with their chief complaint. TRAVEL OUTSIDE OF THE [place] IN LAST 30 DAYS: No - Related Data Allergies/Adverse Reactions: Penicillins Allergy (Severe, Verified 12/07/19 10:45) Past Medical History Renal/ Medical History: Denies: Hx Kidney Stones, Hx Peritoneal Dialysis GI Medical History: Denies: Hx Gastroesophageal Reflux Disease, Hx Hiatal Hernia, Hx Ulcer Skin Medical History: Reports Hx Cellulitis, Reports Hx MRSA Psychiatric Medical History: Reports: Hx Depression Infectious Medical History: Reports: Hx MRSA Past Surgical History: Reports: Hx Section, Hx Genitourinary Surgery - bladder repair, Hx Gynecologic Surgery - 3 abortions - Immunizations Immunizations up to date: Yes Hx Diphtheria, Pertussis, Tetanus Vaccination: Yes Physical Exam - Vital signs Vitals: Temp Pulse Resp BP Pulse Ox 98.5 F 94 14 131/86 H 96 12/07/19 10:27 12/07/19 10:27 12/07/19 10:27 12/07/19 10:27 12/07/19 10:27 Course - Vital Signs Vital signs: Temp Pulse Resp BP Pulse Ox 98.5 F 94 14 131/86 H 96 12/07/19 10:27 12/07/19 10:27 12/07/19 10:27 12/07/19 10:27 12/07/19 10:27
[2019-12-07 11:45] LABS: ABSOLUTE BASOPHILS # (AUTO) 0.1 10^3/uL (0.0-0.2); ABSOLUTE EOSINOPHILS # (AUTO) 0.1 10^3/uL (0.0-0.6); ABSOLUTE LYMPHOCYTES (AUTO) 2.5 10^3/uL (0.5-4.7); ABSOLUTE MONOCYTES (AUTO) 0.9 10^3/uL (0.1-1.4); ABSOLUTE NEUT (AUTO) 8.1 10^3/uL (1.7-8.2); BASOPHILS % (AUTO) 0.9 % (0-2); EOSINOPHILS % (AUTO) 0.9 % (0-6); HEMATOCRIT 41.4 % (36.0-47.0); HEMOGLOBIN 14.6 g/dL (12.0-15.5); LYMPHOCYTES % (AUTO) 21.5 % (13-45); MEAN CORPUSCULAR HEMOGLOBIN 30.1 pg (27.0-33.4); MEAN CORPUSCULAR HGB CONC 35.3 g/dL (32.0-36.0); MEAN CORPUSCULAR VOLUME 85 fl (80-97); MONOCYTES % (AUTO) 7.7 % (3-13); PLATELET COUNT 288 10^3/uL (150-450); RED BLOOD COUNT 4.85 10^6/uL (3.72-5.28); RED CELL DISTRIBUTION WIDTH 14.2 % (11.5-14.0); TOTAL CELLS COUNTED % (AUTO) 100 %; WHITE BLOOD COUNT 11.7 10^3/uL (4.0-10.5)
[2019-12-07 12:04] LABS: ALBUMIN 4.2 g/dL (3.5-5.0); ALKALINE PHOSPHATASE 91 U/L (38-126); ANION GAP 9 (5-19); ASPARTATE AMINO TRANSFERASE 29 U/L (14-36); BILIRUBIN,TOTAL 0.8 mg/dL (0.2-1.3); BLOOD UREA NITROGEN 9 mg/dL (7-20); CALCIUM 9.5 mg/dL (8.4-10.2); CARBON DIOXIDE 24 mmol/L (22-30); CHLORIDE 103 mmol/L (98-107); GLUCOSE 112 mg/dL (75-110); POTASSIUM 3.6 mmol/L (3.6-5.0); TOTAL PROTEIN 7.8 g/dL (6.3-8.2)
[2019-12-07] MEDS ORDERED: MORPHINE SULFATE 10 MG/ML INJ IV ONE (12:11)
--- NOTE | 2019-12-07 12:17 | ER Document Report ---
ED Skin Rash/Insect Bite/Abscs - General Chief Complaint: Abscess Stated Complaint: ABSCESS Time Seen by Provider: 12/07/19 10:46 Mode of Arrival: Ambulatory Notes: Patient is a 38-year-old female who presents to the emergency department with a chief complaint of a possible abscess to her old incision site. Patient noticed that she had pain and swelling to the left side of her site 6 days ago. Patient has history of abscesses in the past. Denies any history of IV drug use. Patient's was 2 years ago. Patient states that her bladder was nicked during her and she had a Haley catheter placed at that time. Denies any symptoms after her . Patient denies any fever, body aches, chills, or other systemic symptoms. Denies any nausea or vomiting. Denies any dysuria. TRAVEL OUTSIDE OF THE [place] IN LAST 30 DAYS: No - Related Data Allergies/Adverse Reactions: Penicillins Allergy (Severe, Verified 12/07/19 10:45) Past Medical History - General Information source: Patient - Social History Smoking Status: Current Every Day Smoker Chew tobacco use (# tins/day): No Frequency of alcohol use: Occasional Drug Abuse: None Family History: Reviewed & Not Pertinent Patient has homicidal ideation: No Renal/ Medical History: Denies: Hx Kidney Stones, Hx Peritoneal Dialysis GI Medical History: Denies: Hx Gastroesophageal Reflux Disease, Hx Hiatal Hernia, Hx Ulcer Skin Medical History: Reports Hx Cellulitis, Reports Hx MRSA Psychiatric Medical History: Reports: Hx Depression Infectious Medical History: Reports: Hx MRSA Past Surgical History: Reports: Hx Section, Hx Genitourinary Surgery - bladder repair, Hx Gynecologic Surgery - 3 abortions - Immunizations Immunizations up to date: Yes Hx Diphtheria, Pertussis, Tetanus Vaccination: Yes Hx Pneumococcal Vaccination: 03/18/10 Review of Systems - Review of Systems Notes: REVIEW OF SYSTEMS: CONSTITUTIONAL : Denies recent illness. Denies recent unintentional weight loss. Denies fever, chills, or sweats. EENT: Denies eye, ear, throat, or mouth pain, discharge, or symptoms. Denies nasal or sinus congestion. CARDIOVASCULAR: Denies chest pain. RESPIRATORY: Denies shortness of breath, cough, congestion, difficulty breathing, or wheezing. GASTROINTESTINAL: Denies nausea, vomiting, and diarrhea. Denies abdominal pain. Denies constipation. GENITOURINARY: Denies difficulty urinating, burning, blood in urine, urgency or frequency. MUSCULOSKELETAL: Denies neck and back pain. Denies joint pain or swelling. SKIN: See HPI. HEMATOLOGIC : Denies easy bruising or bleeding. LYMPHATIC: Denies swollen, painful, enlarged glands. NEUROLOGICAL: Denies no numbness or tingling denies weakness. Denies headache. Denies altered mental status. Denies alteration in speech. PSYCHIATRIC: Denies stress, anxiety, alteration in sleep patterns, or depression. All other systems reviewed and negative. Physical Exam - Vital signs Vitals: Temp Pulse Resp BP Pulse Ox 98.5 F 94 14 131/86 H 96 12/07/19 10:27 12/07/19 10:12/07/19 10:12/07/19 10:12/07/19 10:27 - Notes Notes: PHYSICAL EXAMINATION: GENERAL: Appears well, healthy, well-nourished, no acute distress. HEAD: Normocephalic, atraumatic. EYES: PERRL, conjunctiva normal, all extraocular movements intact, sclera nonicteric ENT: Moist mucous membranes. NECK: Supple, no noticeable swelling, redness, rash. Normal range of motion. LUNGS: Equal breath sounds bilaterally and clear to auscultation. No wheezes rales or rhonchi. CARDIOVASCULAR: S1-S2, regular rate, regular rhythm. Radial pulses 2+, normal. ABDOMEN: Normoactive bowel sounds. Soft, nontender, no guarding, no rebound tenderness, and no masses palpated. EXTREMITIES: Normal strength and range of motion, no pitting or edema. No cyanosis. NEUROLOGICAL: Moves all extremities upon command. Strength 5/5 in all extremities. PSYCH: Normal mood, normal affect. SKIN: Warm, dry. Edema and erythema noted to the left lower abdomen at old C- section site. Course - Re-evaluation Re-evalutation: 12/07/19 14:30 CT of the abdomen pelvis showed a 3.8 cutaneous fluid structure, which was an abscess. Abscess was drained here in the emergency department. The large amount of swelling purulent fluid was drained. Packing was placed. See proce soraidae note. Patient does not appear to have necrotizing fasciitis. Advised patient to follow-up here in the emergency department, as she does not have a primary care provider. She is in agreement with this plan. Follow-up precautions were given. Verbal discharge instructions were given to the renee urbano. They verbalized understanding. They are stable for discharge. - Vital Signs Vital signs: Temp Pulse Resp BP Pulse Ox 98.5 F 71 16 122/74 97 12/07/19 14:58 12/07/19 14:58 12/07/19 14:58 12/07/19 14:58 12/07/19 14:58 - Laboratory Result Diagrams: 12/07/19 11:32 12/07/19 11:32 Laboratory results interpreted by me: 12/07/19 12/07/19 11:32 11:32 WBC 11.7 H RDW 14.2 H Sodium 135.7 L Glucose 112 H Procedures - Incision and Drainage Left Lower Abdomen Type: Simple, Single Anesthetic type: 1% Lidocaine w/epi mL's of anesthetic: 8 Blade size: 11 I&D procedure: Betadine prep applied, Shurclens applied, Iodoform packing placed Incision Method: Incision made by scalpel Amount/type of drainage: 40 mls/purulent and blood Adult Front & Back picture: 1 - abcess Discharge - Discharge Clinical Impression: Abscess Condition: Stable Disposition: HOME, SELF-CARE Instructions: Abscess ([facility]), Cephalexin ([facility]), Post Incision and Drainage, Tri methoprim-Sulfa ([facility]) Additional Instructions: You were seen for an abscess that required drainage. Please return in 2 days to have your abscess reevaluated. Packing was placed. Take your antibiotics. Please return if you develop fever, vomiting, the pain at the site worsens, you notice spreading redness from the area, or you have any other symptoms that are concerning to you. Prescriptions: Sulfamethoxazole/Trimethoprim [Bactrim Ds Tablet] 1 each PO BID 7 Days #14 tablet Cephalexin Monohydrate [Keflex 500 mg Capsule] 500 mg PO Q6H 7 Days #28 capsule Oxycodone HCl/Acetaminophen [Percocet 5-325 mg Tablet] 1 - 2 tab PO Q4H PRN #15 tablet PRN Reason:
--- NOTE | 2019-12-07 12:57 | RADIOLOGY REPORT (SQ) ---
EXAM DESCRIPTION: CT ABD/PELVIS WITH IV ONLY IMAGES COMPLETED DATE/TIME: 12/07/2019 12:43 pm REASON FOR STUDY: abdominal pain/ abscess COMPARISON: None. TECHNIQUE: CT scan of the abdomen and pelvis performed using helical scanning technique with dynamic intravenous contrast injection. No oral contrast. Images reviewed with lung, soft tissue, and bone w indows. Reconstructed coronal and sagittal MPR images reviewed. Delayed images for evaluation of the urinary system also acquired. All images stored on PACS. All CT scanners at this facility use dose modulation, iterative reconstruction, and/or weight based d osing when appropriate to reduce radiation dose to as low as reasonably achievable (ALARA). [facility]: Dose Right [facility]: CareDose [facility]: Dose Right [facility]: Teradose 4D [facility]: Kudo CONTRAST TYPE AND DOSE: 90 mL Isovue 370- low osmolar. RENAL FUNCTION: GFR > 60. RADIATION DOSE: CT Rad equipment meets quality standard of care and radiation dose reduction techniq ues were employed. CTDIvol: 15.7 mGy. DLP: 829 mGy-cm.. LIMITATIONS: None. FINDINGS: LOWER CHEST: No significant findings. LIVER: Normal size. No enhancing masses. No dilated ducts. SPLEEN: Normal size. No focal lesions. PANCREAS: No masses identified. No significant calcifications. No adjacent inflammation or peripancre atic fluid collections. Pancreatic duct not dilated. GALLBLADDER: No calcified stones. No inflammatory changes to suggest cholecystitis. ADRENAL GLANDS: No significant masses. RIGHT KIDNEY AND URETER: No cysts identified. No solid masses identified. 3 mm parenchymal calcified stone. No hydronephrosis or hydroureter. LEFT KIDNEY AND URETER: No cysts identified. No solid masses identified. No calcified stones. No hydr onephrosis or hydroureter. AORTA AND VESSELS: No aneurysm. No dissection. Renal arteries, SMA, celiac without significant stenos is. RETROPERITONEUM: No bulky retroperitoneal adenopathy. BOWEL AND PERITONEAL CAVITY: No obstruction or inflammatory changes. No free fluid. APPENDIX: Normal. PELVIS: Small amount of free fluid. Unremarkable bladder. ABDOMINAL WALL: 3.8 cm rim enhancing fluid collection in the subcutaneous soft tissues left of midlin e in the suprapubic region. BONES: No acute findings. Moderate degenerative disc disease at the L5-S1 level. OTHER: No other significant finding. IMPRESSION: 3.8 cm rim enhancing fluid collection in the subcutaneous soft tissues left of midline in the suprapubic region. TECHNICAL DOCUMENTATION: JOB ID: [id number] [place]-72 Quality ID # [id number]: Final reports with documentation of one or more dose reduction techniques (e.g., Au tomated exposure control, adjustment of the mA and/or kV according to patient size, use of iterative reconstruction technique) 2010 [employer]- All Rights Reserved Reading location - IP/workstation name: [email or web address]
[2019-12-07] MEDS ORDERED: LIDOCAINE 1%/EPINEPHRINE INJ 20 ML VIAL INJ ONE (13:15)
[2019-12-07] MEDS ORDERED: OXYCODONE-ACETAMINOPHEN 5-325 MG TABLET PO ONE (13:21)
[2019-12-07] MEDS ORDERED: ONDANSETRON HCL INJ/PF 4 MG/2 ML SDV IV ONE (13:21)
[2019-12-07 15:00] VITALS: BP 122/74
== END 2019-12-07 14:58 | disposition home or self-care (01) ==
LOC: ER 10:21
DX: L02.211 Cutaneous abscess of abdominal wall (principal); F17.200 Nicotine dependence, unspecified, uncomplicated; Z86.14 Personal history of Methicillin resistant Staphylococcus aureus infection
CPT/HCPCS: 99284; 36415; 87040; 83605; 84703; 85025; 80053; 74177; 10060; J3490; J2270; J2405

== ENCOUNTER 2019-12-09 21:38 | Emergency (ER) | payer SELFPAY ==
--- NOTE | 2019-12-09 22:52 | ER Document Report ---
ED General - General Chief Complaint: Wound Recheck Stated Complaint: WOUND RECHECK Time Seen by Provider: 12/09/19 21:58 Notes: 38-year-old female presents emergency department for a wound recheck. Patient developed an abscess along her well-healed incision which was performed 2 years ago several days ago. On Sunday she had an incised and drained, she is here today for a packing change and a wound recheck. Patient is concerned that the area though it feels a small amount better it is still hard and still draining. Denies any fevers, complains of a small amount of itching in the area. Taking the Bactrim and Keflex as directed, did not get it filled until yesterday. TRAVEL OUTSIDE OF THE [place] IN LAST 30 DAYS: No - Related Data Allergies/Adverse Reactions: Penicillins Allergy (Severe, Verified 12/09/19 21:53) Past Medical History - General Information source: Patient - Social History Smoking Status: Current Every Day Smoker Frequency of alcohol use: None Drug Abuse: None Family History: Reviewed & Not Pertinent Patient has homicidal ideation: No Renal/ Medical History: Denies: Hx Kidney Stones, Hx Peritoneal Dialysis GI Medical History: Denies: Hx Gastroesophageal Reflux Disease, Hx Hiatal Hernia, Hx Ulcer Skin Medical History: Reports Hx Cellulitis, Reports Hx MRSA Psychiatric Medical History: Reports: Hx Depression Infectious Medical History: Reports: Hx MRSA Past Surgical History: Reports: Hx Section, Hx Genitourinary Surgery - bladder repair, Hx Gynecologic Surgery - 3 abortions - Immunizations Immunizations up to date: Yes Hx Diphtheria, Pertussis, Tetanus Vaccination: Yes Hx Pneumococcal Vaccination: 03/18/10 Review of Systems - Review of Systems Constitutional: No symptoms reported EENT: No symptoms reported Skin: See HPI -: Yes All other systems reviewed and negative Physical Exam - Vital signs Vitals: Temp Pulse Resp BP Pulse Ox 98.5 F 77 16 142/89 H 98 12/09/19 21:44 12/09/19 21:44 12/09/19 21:44 12/09/19 21:44 12/09/19 21:44 Interpretation: Hypertensive - General General appearance: Appears well, Alert In distress: None - HEENT Head: Normocephalic, Atraumatic Eyes: Normal Pupils: PERRL Mucous membranes: Moist - Respiratory Respiratory status: No respiratory distress. No: Respiratory distress, Tachypnea - Cardiovascular Normal capillary refill: Yes - Abdominal Notes: Packing in place with purulent drainage noted at the area of her low transverse scar, there is surrounding erythema, no lymphangitic streaking, she is minimally tender to palpation, there is no remaining fluctuance. - Extremities Notes: Moves all 4 extremities spontaneously. No cyanosis. - Neurological Neuro grossly intact: Yes Cognition: Normal Orientation: AAOx4 [place] Coma Scale Eye Opening: Spontaneous [place] Coma Scale Verbal: Oriented [place] Coma Scale Motor: Obeys Commands [place] Coma Scale Total: 15 - Psychological Associated symptoms: Normal affect, Normal mood Course - Re-evaluation Re-evalutation: 12/09/19 23:05 Packing was removed and replaced, wound was explored with a Q-tip, no further pockets of purulence were encountered. Patient was given supplies to do packing changes at home. Patient identified a friend who is a retired [employer] TRA[employer] who can help her with these as she cannot visualize the area herself. Instructed her Epsom salt soaks and discharged home. - Vital Signs Vital signs: Temp Pulse Resp BP Pulse Ox 98.5 F 77 16 142/89 H 98 12/09/19 21:53 12/09/19 21:44 12/09/19 21:44 12/09/19 21:44 12/09/19 21:44 Discharge - Discharge Clinical Impression: Packing change, Encounter for wound re-check, Abscess of skin of abdomen Condition: Stable Disposition: HOME, SELF-CARE Additional Instructions: Please replace the packing every 2 to 3 days with at least 2 cm of packing inside the wound. We have given you packing that does not have iodine on it, this may be less painful. You should also replace the packing anytime it falls out on its own. You may replace it every day if you would like to. Please return for increasing drainage. Do not be concerned by continuing drainage over the next week. Please return for increasing pain or for any fevers or extending areas of redness. Please take the Bactrim and the Keflex as directed until they are gone. Epsom Salt Soaks Soak the wound area in a container of warm epsom salt water. If you can't get the wound area into a bucket or osborne, use a folded towel soaked in the epsom salt solution and apply to the area. Use clean hot tap water (about the temperature of a very warm bath), mixing in about one (1) teaspoon for every pint of water. Two gallon --> 16 teaspoons Epsom Salts One gallon --> 8 teaspoons Epsom Salts Two quarts --> 4 teaspoons Epsom Salts One quart --> 2 teaspoons Epsom Salts Soak the wound for about 20 minutes while gently moving it around in the water. Repeat this four (4) times a day. After the abscess gets better you may try taking bleach baths twice a week. Put 1/4 cup of bleach in a bathtub full of water and soak in there for 15 minutes. Then towel dry, do not rinse off. This may help to decrease the number of abscesses you get in a year. Do not do this while you still have an open wound.
[2019-12-09 23:36] VITALS: BP 140/80
== END 2019-12-09 23:29 | disposition home or self-care (01) ==
LOC: ER 21:38
DX: Z48.01 Encounter for change or removal of surgical wound dressing (principal); L02.211 Cutaneous abscess of abdominal wall; F17.200 Nicotine dependence, unspecified, uncomplicated; Z86.14 Personal history of Methicillin resistant Staphylococcus aureus infection; Z88.0 Allergy status to penicillin
CPT/HCPCS: 99282